=== PATIENT | male | born 1955 | race Caucasian/White ===

== ENCOUNTER 2016-10-09 08:47 | Emergency (ER) | payer MEDICARE, OTHER, SELFPAY ==
[2016-10-09] MEDS ORDERED: LOSARTAN 25 MG TAB PO STA (09:07)
--- NOTE | 2016-10-09 09:11 | ED ---
General Adult HPI - General Chief complaint: ENT Stated complaint: Hypertension Time Seen by Provider: 10/09/16 08:50 Source: patient, EMS, RN notes reviewed Mode of arrival: EMS Limitations: no limitations - History of Present Illness Initial comments: Patient is a pleasant 41-year-old male presenting to the emergency Department with epistaxis. Onset was when he woke at 8 AM. Patient did immediately take his blood pressure medication. Patient states bleeding has now stopped. Patient feels fine and has no other complaints. Patient has had a couple of nosebleeds in the past. Patient states he had difficulty getting it stopped earlier otherwise would not have come. No weakness. Patient does have a history of hypertension. No bleeding from other areas. - Related Data Home Medications Medication Instructions Recorded Confirmed Losartan Potassium [Cozaar] 50 mg PO DAILY 01/26/15 01/26/15 Allergies Allergy/AdvReac Type Severity Reaction Status Date / Time No Known Allergies Allergy Verified 01/26/15 14:34 Review of Systems ROS Statement: Those systems with pertinent positive or pertinent negative responses have been documented in the HPI. ROS Other: All systems not noted in ROS Statement are negative. Constitutional: Denies: fever Eyes: Denies: eye pain ENT: Denies: ear pain Respiratory: Denies: cough Cardiovascular: Denies: chest pain Endocrine: Denies: fatigue Gastrointestinal: Denies: abdominal pain Genitourinary: Denies: dysuria Musculoskeletal: Denies: back pain Skin: Denies: rash Neurological: Denies: headache, weakness Hematological/Lymphatic: Reports: other (Epistaxis) Past Medical History Past Medical History: Hypertension Additional Past Medical History / Comment(s): hepatitis c History of Any Multi-Drug Resistant Organisms: None Reported Past Surgical History: Appendectomy Past Psychological History: No Psychological Hx Reported Smoking Status: Former smoker Past Alcohol Use History: Occasional Past Drug Use History: None Reported General Exam Limitations: no limitations General appearance: alert, in no apparent distress Head exam: Present: atraumatic Eye exam: Present: normal appearance, PERRL ENT exam: Present: normal oropharynx, other (Left nares with trace amount of dried blood/eschar) Neck exam: Present: normal inspection Respiratory exam: Present: normal lung sounds bilaterally Cardiovascular Exam: Present: regular rate, normal rhythm GI/Abdominal exam: Present: soft. Absent: tenderness Extremities exam: Present: normal inspection Neurological exam: Present: alert, oriented X3, CN II-XII intact. Absent: motor sensory deficit Expanded Motor strength exam: RUE: 5, LUE: 5, RLE: 5, LLE: 5 Eye Response: (4) open spontaneously Motor Response: (6) obeys commands Verbal Response: (5) oriented Psychiatric exam: Present: normal affect, normal mood Skin exam: Absent: rash Course Vital Signs 10/09/16 10/09/16 08:51 09:29 Pulse Rate 73 73 Respiratory 18 15 Rate Blood Pressure 152/103 138/94 O2 Sat by Pulse 94 L 93 L Oximetry EKG Findings - EKG Comments: EKG Findings:: Normal sinus rhythm at 67. Normal intervals. Normal axis. Normal QRS. Normal ST-T. Medical Decision Making - Medical Decision Making Patient reevaluated and resting comfortably in bed. Epistaxis remains control. Blood pressure has somewhat improved. Patient updated on results and need for follow-up. - Lab Data Result diagrams: 10/09/16 09:35 10/09/16 09:35 Lab Results 10/09/16 10/09/16 10/09/16 Range/Units 09:35 09:35 09:35 WBC 4.5 (3.8-10.6) k/uL RBC 5.02 (4.30-5.90) m/uL Hgb 15.1 (13.0-17.5) gm/dL Hct 44.7 (39.0-53.0) % MCV 89.0 (80.0-100.0) fL MCH 30.1 (25.0-35.0) pg MCHC 33.8 (31.0-37.0) g/dL RDW 13.8 (11.5-15.5) % Plt Count 129 L (150-450) k/uL Neutrophils % 73 % Lymphocytes % 15 % Monocytes % 6 % Eosinophils % 2 % Basophils % 1 % Neutrophils # 3.3 (1.3-7.7) k/uL Lymphocytes # 0.7 L (1.0-4.8) k/uL Monocytes # 0.3 (0-1.0) k/uL Eosinophils # 0.1 (0-0.7) k/uL Basophils # 0.0 (0-0.2) k/uL PT 11.2 (9.0-12.0) sec INR 1.1 (<1.1) APTT 25.2 (22.0-30.0) sec Sodium 139 (137-145) mmol/L Potassium 4.1 (3.5-5.1) mmol/L Chloride 108 H (98-107) mmol/L Carbon Dioxide 22 (22-30) mmol/L Anion Gap 9 mmol/L BUN 14 (9-20) mg/dL Creatinine 0.71 (0.66-1.25) mg/dL Est GFR (MDRD) Af Amer >60 (>60 ml/min/1.73 sqM) Est GFR (MDRD) Non-Af >60 (>60 ml/min/1.73 sqM) Glucose 102 H (74-99) mg/dL Calcium 8.7 (8.4-10.2) mg/dL Total Bilirubin 1.0 (0.2-1.3) mg/dL AST 23 (17-59) U/L ALT 33 (21-72) U/L Alkaline Phosphatase 60 (38-126) U/L Total Protein 6.7 (6.3-8.2) g/dL Albumin 3.5 (3.5-5.0) g/dL Disposition Clinical Impression: Epistaxis, Hypertension Disposition: HOME SELF-CARE Condition: Stable Instructions: Nosebleed (ED) Additional Instructions: Twice daily for the next 2 days gently apply Vaseline with a Q-tip to the nasal septum. Return for bleeding, uncontrolled blood pressure, weakness, headache, confusion, worsening symptoms or other concerns. Referrals: Sha Hayes MD [Primary Care Provider] - 1-2 days
[2016-10-09 09:49] LABS: Basophils % (A) 1 %; CH 30.8; CHCM 34.8; Eosinophils # (A) 0.1 k/uL (0-0.7); Eosinophils % (A) 2 %; HCT 44.7 % (39.0-53.0); HDW 2.79; HGB 15.1 gm/dL (13.0-17.5); Luc # (Auto) 0.11; Luc % (Auto) 2; Lymphocytes # (A) 0.7 k/uL (1.0-4.8); Lymphocytes % (A) 15 %; MCH 30.1 pg (25.0-35.0); MCHC 33.8 g/dL (31.0-37.0); Mean Platelet Volume 7.3; Monocytes # (A) 0.3 k/uL (0-1.0); Monocytes % (A) 6 %; Neutrophils # (A) 3.3 k/uL (1.3-7.7); Neutrophils % (A) 73 %; RBC 5.02 m/uL (4.30-5.90); RDW 13.8 % (11.5-15.5); WBC 4.5 k/uL (3.8-10.6); WBC (Perox) 4.56
[2016-10-09 09:50] LABS: INR 1.1 (<1.1); Partial Thromboplastin Time 25.2 sec (22.0-30.0); Prothrombin Time 11.2 sec (9.0-12.0)
[2016-10-09 09:55] LABS: ALT 33 U/L (21-72); AST 23 U/L (17-59); Alkaline Phosphatase 60 U/L (38-126); Anion Gap 9 mmol/L; Blood Urea Nitrogen 14 mg/dL (9-20); Calcium 8.7 mg/dL (8.4-10.2); Carbon Dioxide 22 mmol/L (22-30); Chloride 108 mmol/L (98-107); Glucose 102 mg/dL (74-99); Non-African American GFR(MDRD) >60 (>60 ml/min/1.73 sqM); Potassium 4.1 mmol/L (3.5-5.1); Sodium 139 mmol/L (137-145); Total Protein 6.7 g/dL (6.3-8.2)
[2016-10-09 12:26] VITALS: BP 152/94; PULSE 72; RESP 16; TEMP 97
== END 2016-10-09 12:10 | disposition home or self-care (01) ==
LOC: EC 08:47
DX: R04.0 Epistaxis (principal); Z87.891 Personal history of nicotine dependence; Z79.899 Other long term (current) drug therapy
CPT/HCPCS: 36415; 80053; 85025; 85610; 85730; 93005; 99283

== ENCOUNTER 2019-06-29 10:42 | Emergency (ER) | payer MEDICARE, OTHER ==
[2019-06-29 10:58] VITALS: BP 155/109; PULSE 91; RESP 18; TEMP 97.8
[2019-06-29] MEDS ORDERED: LIDOCAINE 1% INJ 10MG/ML (20 ML MDV) SQ ONE (11:10)
[2019-06-29] MEDS ORDERED: GELATIN SPONGE,ABSORB (LARGE) 1 EACH SPONGE TOPICAL STA (11:16)
[2019-06-29] MEDS ORDERED: DIPH,PERTUS(ACELL)TETVAC-LF 0.5 ML VIAL IM ONE (11:16)
[2019-06-29] MEDS ORDERED: GELATIN SPONGE,ABSORB (SMALL) 1 EACH SPONGE TOPICAL STA (11:41)
--- NOTE | 2019-06-29 11:42 | ED ---
Wound/Laceration HPI - General Chief Complaint: Wound/Laceration Stated Complaint: Finger lac Time Seen by Provider: 06/29/19 11:10 Source: patient, RN notes reviewed Mode of arrival: ambulatory Limitations: no limitations - History of Present Illness Initial Comments: 64-year-old male presents emergency Department chief complaint of finger laceration. Patient states that he cut his left hand fifth digit with apparent scissors yesterday from 4 PM. Patient states her still been some mild bruising. Patient denies any numbness or tingling or decreased range of motion he is not sure when his last tetanus was. - Related Data Home Medications Medication Instructions Recorded Confirmed Losartan Potassium [Cozaar] 50 mg PO DAILY 01/26/15 10/09/16 Aspirin 325 - 650 mg PO QID PRN 10/09/16 10/09/16 Famotidine [Pepcid] 20 mg PO BID 10/09/16 10/09/16 amLODIPine BESYLATE [Norvasc] 5 mg PO DAILY 10/09/16 10/09/16 Allergies Allergy/AdvReac Type Severity Reaction Status Date / Time No Known Allergies Allergy Verified 06/29/19 10:58 Review of Systems ROS Statement: Those systems with pertinent positive or pertinent negative responses have been documented in the HPI. ROS Other: All systems not noted in ROS Statement are negative. Past Medical History Past Medical History: Hypertension Additional Past Medical History / Comment(s): hepatitis c History of Any Multi-Drug Resistant Organisms: None Reported Past Surgical History: Appendectomy Past Psychological History: No Psychological Hx Reported Smoking Status: Former smoker Past Alcohol Use History: Occasional Past Drug Use History: None Reported General Exam Limitations: no limitations General appearance: alert, in no apparent distress Head exam: Present: atraumatic, normocephalic, normal inspection Respiratory exam: Present: normal lung sounds bilaterally. Absent: respiratory distress, wheezes, rales, rhonchi, stridor Cardiovascular Exam: Present: regular rate, normal rhythm, normal heart sounds. Absent: systolic murmur, diastolic murmur, rubs, gallop, clicks Extremities exam: Present: other (Left hand fifth digit distal tip there is a skin avulsion noted mild active bleeding neurovascular intact full range of motion) Course Vital Signs 06/29/19 10:55 Temperature 97.8 F Pulse Rate 91 Respiratory 18 Rate Blood Pressure 155/109 O2 Sat by Pulse 95 Oximetry Medical Decision Making - Medical Decision Making Finger was thoroughly cleaned, Gelfoam applied, hemostasis achieved patient's tetanus was updated and will be discharged. Disposition Clinical Impression: Avulsion of skin of finger Disposition: HOME SELF-CARE Condition: Stable Instructions (If sedation given, give patient instructions): Skin Avulsion (ED) Additional Instructions: Please return to the Emergency Department if symptoms worsen or any other concerns. Is patient prescribed a controlled substance at d/c from ED?: No Referrals: None,Stated [Primary Care Provider] - 1-2 days Time of Disposition: 11:42
== END 2019-06-29 11:50 | disposition home or self-care (01) ==
LOC: EC 10:42
DX: S61.207A Unspecified open wound of left little finger without damage to nail, initial encounter (principal); I10 Essential (primary) hypertension; Z87.891 Personal history of nicotine dependence; Z79.899 Other long term (current) drug therapy; Z23 Encounter for immunization; W26.8XXA Contact with other sharp object(s), not elsewhere classified, initial encounter; Z53.8 Procedure and treatment not carried out for other reasons
CPT/HCPCS: 90471; 90715; 99282

== ENCOUNTER 2020-11-16 14:57 | Emergency (ER) | payer OTHER ==
[2020-11-16 15:06] VITALS: BP 150/88; PULSE 86; RESP 20; TEMP 98.1
--- NOTE | 2020-11-16 15:34 | ED ---
Extremity Problem HPI - General Chief complaint: Extremity Problem,Nontraumatic Stated complaint: Swollen finger Time Seen by Provider: 11/16/20 15:12 Source: patient, family Mode of arrival: ambulatory Limitations: no limitations - History of Present Illness Initial comments: Patient is a 65-year-old male presenting to the emergency Department with com plaints of pain and swelling at the distal end of his right middle finger. Patient states his been going on for the last 2 days. He denies any fever or chills. Denies any injuries to the finger. He states he just noticed little bit of swelling. He has been trying warm water soaks as well as topical antibiotics. He has no further complaints at this time. - Related Data Home Medications Medication Instructions Recorded Confirmed Losartan Potassium [Cozaar] 50 mg PO DAILY 01/26/15 10/09/16 Aspirin 325 - 650 mg PO QID PRN 10/09/16 10/09/16 Famotidine [Pepcid] 20 mg PO BID 10/09/16 10/09/16 amLODIPine BESYLATE [Norvasc] 5 mg PO DAILY 10/09/16 10/09/16 Previous Rx's Medication Instructions Recorded Cephalexin [Keflex] 500 mg PO BID 3 Days #6 cap 11/16/20 Allergies Allergy/AdvReac Type Severity Reaction Status Date / Time No Known Allergies Allergy Verified 11/16/20 15:06 Review of Systems ROS Statement: Those systems with pertinent positive or pertinent negative responses have been documented in the HPI. ROS Other: All systems not noted in ROS Statement are negative. Past Medical History Past Medical History: Hypertension Additional Past Medical History / Comment(s): hepatitis c History of Any Multi-Drug Resistant Organisms: None Reported Past Surgical History: Appendectomy Past Psychological History: No Psychological Hx Reported Smoking Status: Current every day smoker Past Alcohol Use History: Daily Past Drug Use History: None Reported General Exam - General Exam Comments Initial Comments: GENERAL: Patient is well-developed and well-nourished. Patient is nontoxic and in no acute distress. HEAD: Atraumatic, normocephalic. EYES: Pupils equal round and reactive to light, extraocular movements intact, sclera anicteric, conjunctiva are normal. Eyelids were unremarkable. ENT: Nares patent, oropharynx clear without exudates. Moist mucous membranes. NECK: Normal range of motion, supple without lymphadenopathy or JVD. LUNGS: Unlabored respirations. Breath sounds clear to auscultation bilaterally and equal. No wheezes rales or rhonchi. HEART: Regular rate and rhythm without murmurs, rubs or gallops. ABDOMEN: Soft, nontender, normoactive bowel sounds. No guarding, no rebound. No masses appreciated. : Deferred MUSCULOSKELETAL: Patient has full range of motion of the right fingers. Normal extremities with adequate strength and normal range of motion, no pitting or edema. No clubbing or cyanosis. NEUROLOGICAL: Patient is alert and oriented x 3. Symmetrical smile. Normal speech, normal gait. PSYCH: Normal mood, normal affect. SKIN: Warm, Dry, normal turgor, no rashes. Patient has some very mild erythema and swelling noted to the lateral aspect of the right middle finger near the nail edge. This is consistent with a very mild paronychia. No spreading erythema. Limitations: no limitations Course Vital Signs 11/16/20 15:03 Temperature 98.1 F Pulse Rate 86 Respiratory 20 Rate Blood Pressure 150/88 O2 Sat by Pulse 100 Oximetry Medical Decision Making - Medical Decision Making Patient is a 65-year-old male here with complaints of pain and swelling at distal and of his right middle finger. Patient has a very mild paronychia present. No obvious signs of spreading infection, no fevers. The area started to drain with some mild pressure here in the ER. Recommended continuing with warm water soaks, topical antibiotics. Patient was very concerned with possibility of spreading infection, I will give him a few days of an oral antibiotic. Patient is stable for discharge. Patient is in agreement with this plan of care. Return parameters were discussed with the patient and they verbalized understanding. Case discussed with Dr. Kelsey. Disposition Clinical Impression: Paronychia of right middle finger Disposition: HOME SELF-CARE Condition: Stable Instructions (If sedation given, give patient instructions): Paronychia (ED) Additional Instructions: Please return to the Emergency Department if symptoms worsen or any other concerns. Continue with warm water soaks, topical antibiotics. May take oral antibiotics as prescribed. Follow-up with your regular family doctor. Prescriptions: Cephalexin [Keflex] 500 mg PO BID 3 Days #6 cap Is patient prescribed a controlled substance at d/c from ED?: No Referrals: None,Stated [Primary Care Provider] - 1-2 days
== END 2020-11-16 15:51 | disposition home or self-care (01) ==
LOC: EC 14:57
DX: L03.011 Cellulitis of right finger (principal); I10 Essential (primary) hypertension; F17.200 Nicotine dependence, unspecified, uncomplicated; Z79.899 Other long term (current) drug therapy
CPT/HCPCS: 99283

== ENCOUNTER → 2021-02-13 | Outpatient (CLI) | payer MEDICARE, OTHER ==
[2021-02-13 16:43] LABS: Basophils # (A) 0.04 X 10*3/uL (0.00-0.10); Basophils % (A) 1.4 %; Eosinophils # (A) 0.08 X 10*3/uL (0.04-0.35); Eosinophils % (A) 2.8 %; HCT 45.6 % (39.6-50.0); HGB 15.3 g/dL (13.0-17.0); Lymphocytes # (A) 0.82 X 10*3/uL (0.90-5.00); Lymphocytes % (A) 28.9 %; MCHC 33.6 g/dL (32.0-37.0); MCV 80.6 fL (80.0-97.0); Mean Platelet Volume 8.8 fL (9.5-12.2); Monocytes # (A) 0.32 X 10*3/uL (0.20-1.00); Monocytes % (A) 11.3 %; Neutrophils # (A) 1.58 X 10*3/uL (1.80-7.70); Neutrophils % (A) 55.6 %; Platelet Count 237 X 10*3/uL (140-440); RBC 5.66 X 10*6/uL (4.40-5.60); RDW 14.8 % (11.5-14.5); WBC 2.84 X 10*3/uL (4.50-10.00)
[2021-02-13 16:54] LABS: African American GFR (CKD) 109.4 (60.0-200.0); Albumin/Globulin Ratio 1.67 (1.60-3.17); Anion Gap 4.2 mmol/L (4.00-12.00); BUN/Creat Ratio 13.75 Ratio (12.00-20.00); Calcium 8.9 mg/dL (8.7-10.3); Carbon Dioxide 27.8 mmol/L (21.6-31.8); Globulin 2.4 g/dL (1.6-3.3); Non-African American GFR(CKD) 94.4 (60.0-200.0); Potassium 4.2 mmol/L (3.5-5.5); Total Bilirubin 1.2 mg/dL (0.2-1.2); Total Protein 6.4 g/dL (6.2-8.2)
[2021-02-13 17:15] LABS: Alpha Fetoprotein, Tumor Mkr <2.5 ng/mL (0.0-7.9)
[2021-02-13 17:53] LABS: Hepatitis B Surface AB- Quant <3.5 mIU/mL; Hepatitis B Surface Antibody Non-Reactive (Non-Reactive); Hepatitis B Surface Antigen Non-Reactive (Non-Reactive)
[2021-02-13 18:33] LABS: INR 0.95 (0.90-1.11); Prothrombin Time 10.4 sec (9.9-11.9)
== END | disposition home or self-care (01) ==
LOC: LABWHC1 10:45
PROVIDERS: ATTEND Internal Medicine
DX: B18.2 Chronic viral hepatitis C (principal); R17 Unspecified jaundice
CPT/HCPCS: 36415; 80053; 82105; 85025; 85610; 86704; 86706; 87340; 87522

== ENCOUNTER 2021-02-23 18:00 | Emergency (ER) | payer MEDICARE, OTHER ==
[2021-02-23] MEDS ORDERED: BACITRACIN OINT 1 EACH PACKET TOPICAL ONE (18:21)
--- NOTE | 2021-02-23 18:27 | ED ---
Lower Extremity Injury HPI - General Chief Complaint: Extremity Injury, Lower Stated Complaint: fall, leg lac Source: patient, RN notes reviewed Mode of arrival: wheelchair Limitations: no limitations - History of Present Illness Initial Comments: 66-year-old white male, alert and oriented 4 presents to the emergency room with complaints of falling off 2 steps between the house and steps at home today about 30 minutes prior to arrival. Patient has abrasions to his left knee and reyna and hematoma to his right anterior tib-fib. Patient states he was able to ambulate. States that it hurts worse with palpation or weightbearing on the right leg. Patient denies any other injuries, no LOC, no blood thinners. Patient states he has had a history of hepatitis C and hypertension surgical history of appendectomy is a 5 cigarette a day smoker. MD Complaint: leg injury -: minutes(s) (30) Injury: Leg: Right, Left Type of Injury: other (Abrasion and hematoma) Place: home Severity scale (1-10): 6 Improves With: nothing Worsens With: palpation Context: fall (Fell down 2 steps between the house and steps) - Related Data Home Medications Medication Instructions Recorded Confirmed Losartan Potassium [Cozaar] 50 mg PO DAILY 01/26/15 10/09/16 Aspirin 325 - 650 mg PO QID PRN 10/09/16 10/09/16 Famotidine [Pepcid] 20 mg PO BID 10/09/16 10/09/16 amLODIPine BESYLATE [Norvasc] 5 mg PO DAILY 10/09/16 10/09/16 Previous Rx's Medication Instructions Recorded Cephalexin [Keflex] 500 mg PO BID 3 Days #6 cap 11/16/20 Allergies Allergy/AdvReac Type Severity Reaction Status Date / Time No Known Allergies Allergy Verified 02/23/21 18:04 Review of Systems ROS Statement: Those systems with pertinent positive or pertinent negative responses have been documented in the HPI. ROS Other: All systems not noted in ROS Statement are negative. Past Medical History Past Medical History: Hypertension Additional Past Medical History / Comment(s): hepatitis c History of Any Multi-Drug Resistant Organisms: None Reported Past Surgical History: Appendectomy Past Psychological History: No Psychological Hx Reported Smoking Status: Current every day smoker Past Alcohol Use History: Daily Past Drug Use History: None Reported General Exam Limitations: no limitations General appearance: alert, in no apparent distress Head exam: Present: atraumatic, normocephalic, normal inspection Eye exam: Present: normal appearance, PERRL, EOMI. Absent: scleral icterus, conjunctival injection, nystagmus, periorbital swelling Pupils: Present: normal accommodation ENT exam: Present: normal exam, normal oropharynx, mucous membranes moist Neck exam: Present: normal inspection, full ROM. Absent: tenderness, meningismus, lymphadenopathy, thyromegaly Respiratory exam: Present: normal lung sounds bilaterally. Absent: respiratory distress, wheezes, rales, rhonchi, stridor, chest wall tenderness, accessory muscle use, decreased breath sounds Cardiovascular Exam: Present: regular rate, normal rhythm, normal heart sounds. Absent: systolic murmur, diastolic murmur, rubs, gallop, clicks GI/Abdominal exam: Present: soft, normal bowel sounds. Absent: distended, tenderness, guarding, rebound, rigid Extremities exam: Present: normal inspection, full ROM, normal capillary refill. Absent: tenderness, pedal edema, joint swelling, calf tenderness Left Lower Leg exam: Present: normal inspection, full ROM, tenderness, abrasion (Abrasion to his left knee and distal tibia fibula ) Ankle exam: Present: normal inspection, full ROM. Absent: tenderness Foot/Toe exam: Present: normal inspection, full ROM. Absent: tenderness Neurovascular tendon exam: Present: no vascular compromise. Absent: pulse deficit, abnormal cap refill, motor deficit, sensory deficit, tendon deficit, extremity cold to touch, pallor, decreased fine/light touch, foot drop, significant pain with passive ROM of distal joint Right Knee exam: Present: normal inspection, full ROM. Absent: tenderness Lower Leg exam: Present: full ROM, tenderness (Hematoma noted to the tip fibula), ecchymosis Ankle exam: Present: normal inspection, full ROM. Absent: tenderness, swelling Foot/Toe exam: Present: normal inspection, full ROM. Absent: tenderness, swelling Neurovascular tendon exam: Present: no vascular compromise. Absent: pulse deficit, abnormal cap refill, motor deficit, sensory deficit, tendon deficit, extremity cold to touch, pallor, decreased fine/light touch, foot drop Back exam: Present: normal inspection. Absent: full ROM, tenderness, CVA tenderness (R), CVA tenderness (L), muscle spasm, paraspinal tenderness, vertebral tenderness Neurological exam: Present: alert, oriented X3, CN II-XII intact Psychiatric exam: Present: normal affect, normal mood Skin exam: Present: warm, dry, intact, normal color. Absent: rash, cyanosis, diaphoretic, erythema, petechiae, pallor, mottled Course Vital Signs 02/23/21 18:01 Temperature 97.6 F Pulse Rate 77 Respiratory 18 Rate Blood Pressure 140/81 O2 Sat by Pulse 98 Oximetry Medical Decision Making - Medical Decision Making X-ray shows no evidence of fracture, joint spaces are within normal limits.. Patient is able to ambulate. Tetanus shot is up-to-date within the past 5 years. Patient will be directed to follow up with his primary care doctor in 1 week. Case discussed with Dr. Locke. Disposition Clinical Impression: Leg pain, Abrasions of multiple sites, Hematoma and contusion Disposition: HOME SELF-CARE Condition: Good Instructions (If sedation given, give patient instructions): Fall Prevention (ED), Hematoma (ED) Additional Instructions: Ice and elevate right leg. Motrin as needed for malou. Follow-up with the primary care doctor in 1 week. Is patient prescribed a controlled substance at d/c from ED?: No Referrals: Richard Mena MD [Primary Care Provider] - 1-2 days Time of Disposition: 18:59
--- NOTE | 2021-02-23 19:10 | XR ---
Result: Clinical History: Pain status post fall. Comparison: None available. Technique: Frontal and lateral views of the right tibia and fibula. Findings: The bone mineralization is appropriate for age. There is no acute fracture or dislocation. The visualized osseous structures are in anatomic alignme nt. The joint spaces are preserved. Impression: No acute osseous abnormality.
[2021-02-23 19:56] VITALS: BP 138/65; PULSE 76; RESP 20; TEMP 98
== END 2021-02-23 19:30 | disposition home or self-care (01) ==
LOC: EC 18:00
DX: S80.12XA Contusion of left lower leg, initial encounter (principal); S80.212A Abrasion, left knee, initial encounter; I10 Essential (primary) hypertension; F17.210 Nicotine dependence, cigarettes, uncomplicated; Z79.899 Other long term (current) drug therapy; W10.9XXA Fall (on) (from) unspecified stairs and steps, initial encounter; Y92.009 Unspecified place in unspecified non-institutional (private) residence as the place of occurrence of the external cause
CPT/HCPCS: 99283

== ENCOUNTER → 2021-03-03 | Outpatient (CLI) | payer MEDICARE, OTHER | END | disposition home or self-care (01) | CPT/HCPCS: 76705 ==

== ENCOUNTER → 2021-04-13 | Outpatient (CLI) | payer MEDICARE, OTHER ==
[2021-04-13 19:12] LABS: Basophils # (A) 0.06 X 10*3/uL (0.00-0.10); Basophils % (A) 1.9 %; Eosinophils # (A) 0.09 X 10*3/uL (0.04-0.35); Eosinophils % (A) 2.8 %; HCT 49.5 % (39.6-50.0); HGB 16.1 g/dL (13.0-17.0); Lymphocytes # (A) 0.83 X 10*3/uL (0.90-5.00); Lymphocytes % (A) 26.1 %; MCH 27.1 pg (27.0-32.0); MCHC 32.5 g/dL (32.0-37.0); MCV 83.2 fL (80.0-97.0); Mean Platelet Volume 9.6 fL (9.5-12.2); Monocytes # (A) 0.33 X 10*3/uL (0.20-1.00); Monocytes % (A) 10.4 %; Neutrophils # (A) 1.85 X 10*3/uL (1.80-7.70); Neutrophils % (A) 58.2 %; Platelet Count 222 X 10*3/uL (140-440); RBC 5.95 X 10*6/uL (4.40-5.60); RDW 15.2 % (11.5-14.5); WBC 3.18 X 10*3/uL (4.50-10.00)
[2021-04-13 21:31] LABS: Albumin 4.3 g/dL (3.80-4.90); Albumin/Globulin Ratio 2.15 (1.60-3.17); Bilirubin, Conjugated 0.5 mg/dL (0.20-0.40); Bilirubin,Unconjugated 1.1 mg/dL; Total Bilirubin 1.6 mg/dL (0.2-1.2); Total Protein 6.3 g/dL (6.2-8.2)
== END | disposition home or self-care (01) ==
LOC: LABWHC1 11:18
PROVIDERS: ATTEND Physician Assistant
DX: B18.2 Chronic viral hepatitis C (principal)
CPT/HCPCS: 36415; 80076; 85025; 87522

== ENCOUNTER → 2021-10-06 | Outpatient (CLI) | payer OTHER ==
--- NOTE | 2021-10-06 11:39 | XR ---
Lumbar spine HISTORY: Chronic low back pain 3 views of the lumbar spine There is a slight spinal curvature convex left centered at L2. Lumbar vertebral bodies show preserved height and bone mineralization. Is multilevel spondylosis. Sclerosis in the posterior elements is co nsistent with facet arthropathy. Disc height is reduced at L4-5, L5-S1. Superior endplate of L1 shows a mildly irregular appearance, possibly T12 also shows some loss of height. Sclerosis present at the sacroiliac joint on the right with hypertrophic change. Atherosclerotic vascular calcifications are present within the aorta iliac distribution. Question nephrolithiasis on the left and possibly right. IMPRESSION: Degenerative disc disease, facet arthropathy. Spinal curvature. Question some mild superi or endplate depression at T12 greater than L1, endplate compression deformity. Possible nephrolithias is, additional findings above.
== END | disposition home or self-care (01) ==
LOC: RADXRMAIN 09:26
PROVIDERS: ATTEND Internal Medicine Geriatric Medicine
DX: M47.896 Other spondylosis, lumbar region (principal); M48.00 Spinal stenosis, site unspecified; M51.36 Other intervertebral disc degeneration, lumbar region
CPT/HCPCS: 72100

== ENCOUNTER → 2021-10-06 | Outpatient (CLI) | payer OTHER ==
[2021-10-06 15:35] LABS: Alpha Fetoprotein, Tumor Mkr <1.82 ng/mL (0.00-7.90)
[2021-10-06 15:45] LABS: INR 0.97 (0.90-1.11)
[2021-10-06 15:56] LABS: ALT 6 U/L (10-49); AST 18 U/L (14-35); African American GFR (CKD) 96.2 (60.0-200.0); Albumin 3.5 g/dL (3.8-4.9); Albumin/Globulin Ratio 1.63 (1.60-3.17); Alkaline Phosphatase 83 U/L (41-126); BUN/Creat Ratio 7.99 Ratio (12.00-20.00); Bilirubin, Conjugated <0.20 mg/dL (0.20-0.40); Blood Urea Nitrogen 7.7 mg/dL (9.0-27.0); Carbon Dioxide 22.3 mmol/L (20.0-27.5); Chloride 100 mmol/L (96-109); Globulin 2.1 g/dL (1.6-3.3); Glucose 89 mg/dL (70-110); Potassium 4.7 mmol/L (3.5-5.5); Sodium 133 mmol/L (135-145); Total Protein 5.6 g/dL (6.2-8.2)
[2021-10-06 17:33] LABS: Basophils # (A) 0.02 X 10*3/uL (0.00-0.10); Basophils % (A) 0.9 %; Eosinophils # (A) 0.03 X 10*3/uL (0.04-0.35); Eosinophils % (A) 1.4 %; HGB 14.2 g/dL (13.0-17.0); Immature Grans, Automated 0.9 %; Lymphocytes # (A) 0.69 X 10*3/uL (0.90-5.00); Lymphocytes % (A) 32.4 %; MCH 27.1 pg (27.0-32.0); MCV 82.1 fL (80.0-97.0); Mean Platelet Volume 11.9 fL (9.5-12.2); Monocytes # (A) 0.13 X 10*3/uL (0.20-1.00); Monocytes % (A) 6.1 %; NRBC Per 100 WBC 0 /100 WBCS (0.0-0.0); Neutrophils # (A) 1.24 X 10*3/uL (1.80-7.70); Neutrophils % (A) 58.3 %; Platelet Count 100 X 10*3/uL (140-440); RBC 5.24 X 10*6/uL (4.40-5.60); WBC 2.13 X 10*3/uL (4.50-10.00)
== END | disposition home or self-care (01) ==
LOC: LABWHC1 08:36
PROVIDERS: ATTEND Internal Medicine Gastroenterology
DX: K74.60 Unspecified cirrhosis of liver (principal); B18.2 Chronic viral hepatitis C
CPT/HCPCS: 36415; 80053; 82105; 82248; 85025; 85610; 87522

== ENCOUNTER 2021-11-21 16:57 | Observation (INO) | payer MEDICARE, OTHER ==
--- NOTE | 2021-11-21 18:02 | XR ---
EXAMINATION TYPE: XR foot complete LT DATE OF EXAM: 11/21/2021 COMPARISON: NONE HISTORY: Foot pain TECHNIQUE: 3 views FINDINGS: Metatarsals are intact. Toes are intact. I see no fracture nor dislocation. There is soft t issue swelling of the forefoot. IMPRESSION: Soft tissue swelling. No fracture seen. Calcaneal spurring noted.
--- NOTE | 2021-11-21 19:11 | ED ---
General Adult HPI - General Chief complaint: Extremity Injury, Lower Stated complaint: Left Foot Swelling Time Seen by Provider: 11/21/21 18:15 Source: patient, RN notes reviewed Mode of arrival: wheelchair Limitations: no limitations - History of Present Illness Initial comments: 66-year-old male presents to the emergency department accompanied by a family member for evaluation of left lower extremity edema. Patient's family states this leg has been swollen for at least a month. Patient reports a fall several weeks ago, however states the swelling preceded the injury. Also complains of spotty purplish discoloration to bilateral lower extremities; states this has been a longstanding issue but is another source of concern. Family is requesting a venous doppler study of the left lower extremity. Patient is not worried about a blood clot, but is concerned about cellulitis. Denies lower extremity pain, but son states the patient walks as if his leg is bothering him. Denies fever, chills, headache, chest pain, shortness of breath, difficulty breathing, abdominal pain, nausea, vomiting, diarrhea, or dysuria. - Related Data Home Medications Medication Instructions Recorded Confirmed Baclofen 10 mg PO DAILY 11/21/21 11/21/21 lisinopriL 40 mg PO DAILY 11/21/21 11/21/21 Allergies Allergy/AdvReac Type Severity Reaction Status Date / Time No Known Allergies Allergy Verified 11/21/21 22:03 Review of Systems ROS Statement: Those systems with pertinent positive or pertinent negative responses have been documented in the HPI. ROS Other: All systems not noted in ROS Statement are negative. Past Medical History Past Medical History: Hypertension Additional Past Medical History / Comment(s): hepatitis c History of Any Multi-Drug Resistant Organisms: None Reported Past Surgical History: Appendectomy Past Psychological History: No Psychological Hx Reported Smoking Status: Current every day smoker Past Alcohol Use History: Daily Past Drug Use History: None Reported - Past Family History Father Family Medical History: Cancer, Hypertension, Myocardial Infarction ([place]) General Exam Limitations: no limitations General appearance: alert, in no apparent distress, other (Well-developed, well- nourished male in no acute distress. Initial temperature 97.7, pulse 68, respirations 18, blood pressure 159/109, pulse ox 100% on room air.) Respiratory exam: Present: normal lung sounds bilaterally. Absent: respiratory distress, wheezes, rales, rhonchi, stridor Cardiovascular Exam: Present: regular rate, normal rhythm, normal heart sounds. Absent: systolic murmur, diastolic murmur, rubs, gallop, clicks GI/Abdominal exam: Present: soft, normal bowel sounds. Absent: distended, tenderness, guarding, rebound, rigid Right Upper Leg exam: Present: normal inspection, full ROM. Absent: tenderness, swelling Knee exam: Present: normal inspection, full ROM. Absent: tenderness, swelling Lower Leg exam: Present: full ROM. Absent: normal inspection (scattered purpura BLE), tenderness, swelling, erythema, Homans' sign Ankle exam: Present: full ROM, swelling (mild swelling, medial >lateral). Absent: normal inspection, tenderness Foot/Toe exam: Present: normal inspection, full ROM. Absent: tenderness, swelling Neurovascular tendon exam: Present: no vascular compromise. Absent: pulse deficit, abnormal cap refill, motor deficit, sensory deficit, tendon deficit, extremity cold to touch Left Upper Leg exam: Present: normal inspection, full ROM. Absent: tenderness, swelling Knee exam: Present: normal inspection, full ROM. Absent: tenderness, swelling Lower Leg exam: Present: full ROM, swelling (swelling extends from knee to foot; +1 pitting edema). Absent: normal inspection (scattered purpura BLE), tenderness, erythema, Homans' sign Ankle exam: Present: full ROM, swelling. Absent: normal inspection, tenderness Foot/Toe exam: Present: full ROM, swelling. Absent: tenderness Neurovascular tendon exam: Present: no vascular compromise. Absent: pulse deficit, abnormal cap refill, motor deficit, sensory deficit, tendon deficit, extremity cold to touch Neurological exam: Present: alert, oriented X3 Psychiatric exam: Present: normal affect, normal mood Skin exam: Present: warm, dry, intact Course Vital Signs 11/21/21 11/21/21 11/21/21 17:09 20:51 23:20 Temperature 97.7 F 97.6 F 98.1 F Pulse Rate 68 62 60 Respiratory 18 16 18 Rate Blood Pressure 159/109 140/87 138/86 O2 Sat by Pulse 100 98 99 Oximetry Medical Decision Making - Medical Decision Making 66-year-old male with a past medical history of hepatitis C for which he received treatment presents to the emergency department for evaluation of left lower extremity edema. Upon exam, patient is well-appearing and in no acute distress. He is not experiencing any chest pain or shortness of breath. His le ft lower extremity is more swollen than the right with trace pitting edema. Patient is noted to have scattered purpura on bilateral lower extremities. Venous Doppler study is negative for DVT. Left foot x-ray is unremarkable. Laboratory studies show worsening leukopenia and thrombocytopenia. Findings discussed with patient. He is agreeable to hospital admission for further evaluation and treatment. This patient's care was discussed with my attending, Dr. Zepeda. I spoke with Dr. Pineda who agrees to accept this patient for admission. - Lab Data Result diagrams: 11/21/21 19:06 11/21/21 19:06 Lab Results 11/21/21 11/21/21 11/21/21 Range/Units 19:06 19:06 19:06 WBC 1.6 L (3.8-10.6) k/uL RBC 4.70 (4.30-5.90) m/uL Hgb 12.8 L (13.0-17.5) gm/dL Hct 38.4 L (39.0-53.0) % MCV 81.8 (80.0-100.0) fL MCH 27.2 (25.0-35.0) pg MCHC 33.3 (31.0-37.0) g/dL RDW 14.4 (11.5-15.5) % Plt Count 46 L (150-450) k/uL MPV 9.2 Neutrophils % (Manual) 51 % Band Neuts % (Manual) 2 % Lymphocytes % (Manual) 42 % Monocytes % (Manual) 3 % Eosinophils % (Manual) 1 % Basophils % (Manual) 1 % Neutrophils # (Manual) 0.80 L (1.3-7.7) k/uL Lymphocytes # (Manual) 0.67 L (1.0-4.8) k/uL Monocytes # (Manual) 0.05 (0-1.0) k/uL Eosinophils # (Manual) 0.02 (0-0.7) k/uL Basophils # (Manual) 0.02 (0-0.2) k/uL Nucleated RBCs 0 (0-0) /100 WBC Manual Slide Review Performed PT 10.9 (9.0-12.0) sec INR 1.0 (<1.2) APTT 25.7 (22.0-30.0) sec Sodium 130 L (137-145) mmol/L Potassium 4.4 (3.5-5.1) mmol/L Chloride 103 (98-107) mmol/L Carbon Dioxide 21 L (22-30) mmol/L Anion Gap 6 mmol/L BUN 12 (9-20) mg/dL Creatinine 0.93 (0.66-1.25) mg/dL Est GFR (CKD-EPI)AfAm >90 (>60 ml/min/1.73 sqM) Est GFR (CKD-EPI)NonAf 87 (>60 ml/min/1.73 sqM) Glucose 92 (74-99) mg/dL Calcium 7.9 L (8.4-10.2) mg/dL Total Bilirubin 1.1 (0.2-1.3) mg/dL AST 21 (17-59) U/L ALT 7 (4-49) U/L Alkaline Phosphatase 69 (38-126) U/L Total Protein 5.8 L (6.3-8.2) g/dL Albumin 3.0 L (3.5-5.0) g/dL - Radiology Data Radiology results: report reviewed, image reviewed Venous Doppler of the left lower extremity was obtained. Report was reviewed in its entirety. Impression per Dr. Portillo is no evidence of deep vein thrombosis in the left leg. X-ray of the left foot was obtained. Report was reviewed in its entirety. Impression per Dr. Portillo is soft tissue swelling. No fracture seen. Calcaneal spurring noted. Disposition Clinical Impression: Thrombocytopenia, Lower extremity edema, Purpura Disposition: ADMITTED IP TO THIS [facility] Condition: Serious Decision Date: 11/21/21 Decision Time: 22:51
[2021-11-21 19:33] LABS: ALT 7 U/L (4-49); AST 21 U/L (17-59); African American GFR (CKD) >90 (>60 ml/min/1.73 sqM); Alkaline Phosphatase 69 U/L (38-126); Anion Gap 6 mmol/L; Blood Urea Nitrogen 12 mg/dL (9-20); Calcium 7.9 mg/dL (8.4-10.2); Carbon Dioxide 21 mmol/L (22-30); Chloride 103 mmol/L (98-107); Glucose 92 mg/dL (74-99); Non-African American GFR(CKD) 87 (>60 ml/min/1.73 sqM); Potassium 4.4 mmol/L (3.5-5.1); Sodium 130 mmol/L (137-145); Total Bilirubin 1.1 mg/dL (0.2-1.3); Total Protein 5.8 g/dL (6.3-8.2)
[2021-11-21 19:41] LABS: HCT 38.4 % (39.0-53.0); HGB 12.8 gm/dL (13.0-17.5); MCH 27.2 pg (25.0-35.0); MCHC 33.3 g/dL (31.0-37.0); MCV 81.8 fL (80.0-100.0); Mean Platelet Volume 9.2; RDW 14.4 % (11.5-15.5); WBC 1.6 k/uL (3.8-10.6)
--- NOTE | 2021-11-21 20:05 | US ---
EXAMINATION TYPE: US venous doppler duplex LE LT DATE OF EXAM: 11/21/2021 7:34 PM COMPARISON: NONE CLINICAL HISTORY: Left lower extremity edema. Left leg swelling, no known prior DVT SIDE PERFORMED: Left TECHNIQUE: The lower extremity deep venous system is examined utilizing real time linear array sonog junior with graded compression, doppler sonography and color-flow sonography. VESSELS IMAGED: Common Femoral Vein Deep Femoral Vein Greater Saphenous Vein * Femoral Vein Popliteal Vein Small Saphenous Vein * Proximal Calf Veins (* superficial vessels) Left Leg: Negative for DVT IMPRESSION: No evidence of deep vein thrombosis in the left leg.
[2021-11-21 20:32] LABS: Nucleated Red Blood Cells 0 /100 WBC (0-0)
[2021-11-21 20:40] LABS: Band Neutrophils % 2 %; Basophils # (M) 0.02 k/uL (0-0.2); Eosinophils # (M) 0.02 k/uL (0-0.7); Lymphocytes # (M) 0.67 k/uL (1.0-4.8); Monocytes # (M) 0.05 k/uL (0-1.0); Neutrophils % (M) 51 %; Total Cells Counted 100
[2021-11-21 20:41] LABS: Platelet Count 46 k/uL (150-450)
[2021-11-21 21:09] LABS: Partial Thromboplastin Time 25.7 sec (22.0-30.0); Prothrombin Time 10.9 sec (9.0-12.0)
[2021-11-21] MEDS ORDERED: ACETAMINOPHEN TAB 325 MG TAB PO PRN (22:46)
[2021-11-21] MEDS ORDERED: HYDROcodone/APAP 5-325MG 1 EACH TAB PO PRN (22:46)
[2021-11-21] MEDS ORDERED: NALOXONE 0.4 MG/ML 1 ML VIAL IV PRN (22:46)
[2021-11-21] MEDS ORDERED: ONDANSETRON 4 MG/2 ML VIAL IVP PRN (22:46)
--- NOTE | 2021-11-22 01:28 | P.HPIM ---
History of Present Illness H&P Date: 11/21/21 Patient is a 66-year-old male with a PMH of hepatitis C, recently completed a course of curative intent therapy, hypertension, and tobacco abuse who presents the emergency room with complaints of lower extremity bruising and left lower extremity edema. Patient reports that his symptoms have been ongoing for the past 1 month, for which he has been attempting to see his PCP but has been unable to make an appointment. He reports that the bruising and no swelling have gradually worsened. He denied any additional complaints. He denied experiencing leg pain. Denied any history of blood clots. He denied experiencing fever, chills, weight loss, chest pain, shortness of breath, nausea, vomiting, abdominal pain, diarrhea. Left lower extremity venous Doppler in the emergency room was negative. Left-sided foot x-ray revealed soft tissue swelling. Laboratory evaluation was remarkable for pancytopenia with a WBC count 1.6, hemoglobin 12.8, and platelet count 46. Review of systems: Pertinent positives and negatives as discussed in HPI, a complete review of systems was performed and all other systems are negative. Physical examination: General: non toxic, no distress, appears at stated age, normal weight Derm: Petechiae with purpura of LLE greater than RLE noted, warm, dry Head: atraumatic, normocephalic, symmetric Eyes: EOMI, no lid lag, anicteric sclera, pupils equal round reactive to light ENT: Nose and ears atraumatic, no thrush, no pharyngeal erythema Neck: No thyromegaly, no cervical lymphadenopathy, trachea midline, supple Mouth: no lip lesion, mucus membranes moist Cardiovascular: S1S2 reg, no murmur, positive posterior tibial pulse bilateral, 1+ LLE edema noted, capillary refill less than 2 seconds Lungs: CTA bilateral, no rhonchi, no rales , no accessory muscle use Abdominal: soft, nontender to palpation, no guarding, no appreciable organomegaly, normal bowel sounds Ext: no gross muscle atrophy, muscle strength 5 out of 5 in all 4 extremities grossly, no contractures, Neuro: CN II-XI grossly intact, light touch intact all 4 extremities, finger to nose within normal limits, Psych: Alert, oriented, appropriate affect Assessment/plan Pancytopenia with purpura in patient with Hepatitis C -Hematology consult -Patient may need Bone marrow biopsy -Obtain ESR, CRP, C3, C4, ANCA, DVT prophylaxis -Hold off on IPCDs in setting of significant LE purpura The patient is admitted with an anticipated less than 2 midnight stay for evaluation of pancytopenia CODE STATUS: Full Code Discussed with: Patient Anticipated discharge date: in am Anticipated discharge place: Home Past Medical History Past Medical History: Hypertension Additional Past Medical History / Comment(s): hepatitis c History of Any Multi-Drug Resistant Organisms: None Reported Past Surgical History: Appendectomy Past Anesthesia/Blood Transfusion Reactions: No Reported Reaction Past Psychological History: No Psychological Hx Reported Smoking Status: Current every day smoker Past Alcohol Use History: Daily Past Drug Use History: None Reported - Past Family History Father Family Medical History: Cancer, Hypertension, Myocardial Infarction ([place]) Medications and Allergies Home Medications Medication Instructions Recorded Confirmed Type Baclofen 10 mg PO DAILY 11/21/21 11/21/21 History lisinopriL 40 mg PO DAILY 11/21/21 11/21/21 History Allergies Allergy/AdvReac Type Severity Reaction Status Date / Time No Known Allergies Allergy Verified 11/21/21 22:03 Physical Exam Vitals: Vital Signs Temp Pulse Resp BP Pulse Ox 11/21/21 23:20 98.1 F 60 18 138/86 99 11/21/21 20:51 97.6 F 62 16 140/87 98 11/21/21 17:09 97.7 F 68 18 159/109 100 Intake and Output 11/21/21 11/21/21 11/22/21 14:59 22:59 06:59 Other: Weight 69.853 kg 69.853 kg Results CBC & Chem 7: 11/21/21 19:06 11/21/21 19:06 Labs: Abnormal Lab Results - Last 24 Hours (Table) 11/21/21 11/21/21 Range/Units 19:06 19:06 WBC 1.6 L (3.8-10.6) k/uL Hgb 12.8 L (13.0-17.5) gm/dL Hct 38.4 L (39.0-53.0) % Plt Count 46 L (150-450) k/uL Neutrophils # (Manual) 0.80 L (1.3-7.7) k/uL Lymphocytes # (Manual) 0.67 L (1.0-4.8) k/uL Sodium 130 L (137-145) mmol/L Carbon Dioxide 21 L (22-30) mmol/L Calcium 7.9 L (8.4-10.2) mg/dL Total Protein 5.8 L (6.3-8.2) g/dL Albumin 3.0 L (3.5-5.0) g/dL Thrombosis Risk Factor Assmnt - Choose All That Apply Any of the Below Risk Factors Present?: Yes Each Factor Represents 1 point: Swollen legs (current) Other Risk Factors: Yes Each Risk Factor Represents 2 Points: Age 61-74 years Other congenital or acquired thrombophilia - If yes, enter type in comment: No Thrombosis Risk Factor Assessment Total Risk Factor Score: 3 Thrombosis Risk Factor Assessment Level: Moderate Risk
[2021-11-22 07:04] LABS: Calcium 7.9 mg/dL (8.4-10.2); Potassium 4.9 mmol/L (3.5-5.1)
[2021-11-22 07:09] LABS: HCT 35.2 % (39.0-53.0); HGB 11.6 gm/dL (13.0-17.5); MCH 27.2 pg (25.0-35.0); MCV 82.4 fL (80.0-100.0); Mean Platelet Volume 7.6; RBC 4.27 m/uL (4.30-5.90); RDW 14.4 % (11.5-15.5)
[2021-11-22 07:31] LABS: Platelet Count 44 k/uL (150-450); WBC 1.4 k/uL (3.8-10.6)
[2021-11-22 09:13] LABS: C Reactive Protein 1.3 mg/dL (<1.0)
--- NOTE | 2021-11-22 09:36 | P.CONS ---
History of Present Illness - Reason for Consult Consult date: 11/22/21 History of hepatitis C Requesting physician: Richard Mena - Chief Complaint Lower extremity swelling - History of Present Illness This is 66-year-old male who presented to the emergency department yesterday evening for complaints of lower extremity swelling. Apparently patient's left lower extremity has been swollen and discolored for the last 1 month's duration. Patient had reported a fall several weeks ago. He states he's been having spotty purplish discoloration to bilateral lower extremities. Patient was noted on admission to be pancytopenic with purpura. Patient does have a history of hepatitis C, treated. Patient is unsure of treatment but states he was diagnosed approximately 1 year ago. Gastroenterology was consulted for patient with history of hepatitis C in the setting of pancytopenia with left lower extremity purpura. Patient also does have a history of every day smoker and alcohol use. He states he has an appointment upcoming at the end of next month with gastroenterology for follow-up on hepatitis C. He is concerned with his counts after treatment, and if his hepatitis C is resolved. Admitting labs WBC 1.6 hemoglobin 12.8 hematocrit 38 platelet count 46,000 INR 1.0 total bilirubin 1.1 AST 21 and T7 alkaline phosphatase 69. Looks like he had outpatient labs on 10/06/2021 hepatitis C viral RNA not detected. He currently denies any abdominal pain, abdominal bloating, nausea or vomiting. Review of Systems REVIEW OF SYSTEMS: CARDIOPULMONARY: No chest pain or shortness of breath. Gastrointestinal: No abdominal pain. No nausea or vomiting. No hematemesis, coffee-ground emesis. No rectal bleeding, or melena. GENITOURINARY: No dysuria or hematuria. MUSCULOSKELETAL: Reports normal range of motion. No joint pain. SKIN: No rashes. No jaundice. Left lower extremity swelling with Purpura. ENDOCRINE: No chills, fevers. No excessive weight gain or loss. No polydipsia or polyuria. PSYCHIATRIC: Unremarkable. NEUROLOGY: No change in mental status. Denies dizziness, headache. ENT: Vision unremarkable. CONSTITUTIONAL: No recent weight loss. No fever, chills, night sweats. Past Medical History Past Medical History: Hypertension Additional Past Medical History / Comment(s): hepatitis c History of Any Multi-Drug Resistant Organisms: None Reported Past Surgical History: Appendectomy Past Anesthesia/Blood Transfusion Reactions: No Reported Reaction Past Psychological History: No Psychological Hx Reported Smoking Status: Current every day smoker Past Alcohol Use History: Daily Past Drug Use History: None Reported - Past Family History Father Family Medical History: Cancer, Hypertension, Myocardial Infarction ([place]) Medications and Allergies Home Medications Medication Instructions Recorded Confirmed Type Baclofen 10 mg PO DAILY 11/21/21 11/21/21 History lisinopriL 40 mg PO DAILY 11/21/21 11/21/21 History Allergies Allergy/AdvReac Type Severity Reaction Status Date / Time No Known Allergies Allergy Verified 11/21/21 22:03 Physical Exam Vitals: Vital Signs Temp Pulse Pulse Resp BP BP Pulse Ox 11/22/21 07:00 98.7 F 60 18 137/85 97 11/22/21 00:29 97.8 F 62 20 151/95 98 11/21/21 23:20 98.1 F 60 18 138/86 99 11/21/21 20:51 97.6 F 62 16 140/87 98 11/21/21 17:09 97.7 F 68 18 159/109 100 Intake and Output 11/21/21 11/22/21 11/22/21 22:59 06:59 14:59 Other: # Voids 1 Weight 69.853 kg 69.853 kg General appearance: The patient is alert, oriented, appears in no acute distress. HET: Head is normocephalic and atraumatic. Conjunctiva pink. Sclera anicteric. Neck: Supple without lymphadenopathy. Trachea midline. Heart: S1 S2. Regular rate and rhythm. Lungs: Clear to auscultation. Abdomen: Soft, nontender, nondistended with bowel sounds. No guarding or rigidity. Skin: No rashes. No jaundice. Extremities: Normal skin color and turgor. Bilateral lower extremity edema, greater on left. Left lower extremity with purpura. Neurological: No focal deficits. Alert and oriented x3. Results CBC & Chem 7: 11/22/21 05:59 11/22/21 05:59 Labs: Abnormal Lab Results - Last 24 Hours (Table) 11/21/21 11/21/21 11/22/21 Range/Units 19:06 19:06 05:59 WBC 1.6 L 1.4 L* (3.8-10.6) k/uL RBC 4.27 L (4.30-5.90) m/uL Hgb 12.8 L 11.6 L (13.0-17.5) gm/dL Hct 38.4 L 35.2 L (39.0-53.0) % Plt Count 46 L 44 L (150-450) k/uL Neutrophils # (Manual) 0.80 L (1.3-7.7) k/uL Lymphocytes # (Manual) 0.67 L (1.0-4.8) k/uL ESR (0-15) mm/hr Sodium 130 L (137-145) mmol/L Carbon Dioxide 21 L (22-30) mmol/L Calcium 7.9 L (8.4-10.2) mg/dL C-Reactive Protein (<1.0) mg/dL Total Protein 5.8 L (6.3-8.2) g/dL Albumin 3.0 L (3.5-5.0) g/dL 11/22/21 11/22/21 Range/Units 05:59 08:49 WBC (3.8-10.6) k/uL RBC (4.30-5.90) m/uL Hgb (13.0-17.5) gm/dL Hct (39.0-53.0) % Plt Count (150-450) k/uL Neutrophils # (Manual) (1.3-7.7) k/uL Lymphocytes # (Manual) (1.0-4.8) k/uL ESR 20 H (0-15) mm/hr Sodium 131 L (137-145) mmol/L Carbon Dioxide (22-30) mmol/L Calcium 7.9 L (8.4-10.2) mg/dL C-Reactive Protein 1.3 H (<1.0) mg/dL Total Protein (6.3-8.2) g/dL Albumin (3.5-5.0) g/dL Comments: Venous duplex left lower extremity negative for DVT X-ray left foot report soft tissue swelling. No fracture seen. Calcaneal spurring noted. Assessment and Plan (1) History of hepatitis C Narrative/Plan: A 66-year-old male who states he was diagnosed and treated for hepatitis C approximately one year ago presented to the emergency department yesterday evening with complaints of lower extremity swelling with discoloration to the left lower extremity. He was noted to have pancytopenia on admission. Patient states he has been treated about one year ago for his hepatitis C and follows with Dr. Turner's office. He is unsure of his treatment however likely [facility]ann[facility]. Gastroenterology was consulted as patient had questions if his treatment was successful. It does look like he had some outpatient blood work done September 2021 that showed a negative hepatitis C RNA. He is denying any abdominal pain, nausea, vomiting, or abdominal distention. States he's had lower extremity swelling for at least last 1 month's duration with some discoloration to the left lower extremity. He denies any previous history of thrombocytopenia, den ies any outpatient follow-up with hematology. He denies any signs or symptoms of bleeding. No GI blood loss reported. Today's labs WBC 1.4 hemoglobin 11.6 hematocrit 35, platelet count 44,000 ESR 20 CRP pending, total bilirubin 1.1 AST 21 and T7 alk phos 69. He had previous AFP tumor marker which was negative less than 1.82 Current Visit: Yes Status: Acute Code(s): Z86.19 - PERSONAL HISTORY OF OTHER INFECTIOUS AND PARASITIC DISEASES SNOMED Code(s): 42577942197327 (2) Purpura Current Visit: Yes Status: Acute Code(s): D69.2 - OTHER NONTHROMBOCYTOPENIC PURPURA SNOMED Code(s): 427921233 (3) Pancytopenia Current Visit: Yes Status: Acute Code(s): D61.818 - OTHER PANCYTOPENIA SNOMED Code(s): 366168841 Plan: 1. Continue symptomatic and supportive care 2. Continue with recommendations and input from hematology 3. Most recent hepatitis C RNA nonreactive 4. Continue outpatient follow-up as scheduled with gastroenterology Thank you for this consultation, we will continue to follow. Dr. Freya Mcelroy I agree with the dictator's note, documented as a scribe by Aarti Quintanilla.
[2021-11-22] MEDS: FAMOTIDINE 20 MG TAB PO SCH ×2 (09:43→19:20)
[2021-11-22 10:07] LABS: Eosinophils # (M) 0.03 k/uL (0-0.7); Monocytes # (M) 0.08 k/uL (0-1.0); Neutrophils # (M) 0.59 k/uL (1.3-7.7); Neutrophils % (M) 42 %; Nucleated Red Blood Cells 0 /100 WBC (0-0); Total Cells Counted 100
[2021-11-22 10:08] LABS: RBC Morphology Normal
[2021-11-22 12:54] LABS: Partial Thromboplastin Time 26.4 sec (22.0-30.0); Prothrombin Time 10.7 sec (9.0-12.0)
--- NOTE | 2021-11-22 14:59 | P.CONS ---
History of Present Illness - Reason for Consult Consult date: 11/22/21 Bicytopenia Requesting physician: Aarti Tarango - Chief Complaint BLE Rash - Purpura - History of Present Illness is a pleasant 66 year old male patient recently treated with Harvoni for Hepatitis C, Discussed with GI who confirmed response to treatment, believes this completed in February 2021. However he still has liver cirrhosis which could be contributing to current concerns. He presents to hospital with ble purpura, lower platelet count 44K, and neutropenia. No active infection found at this time, however blood cultures and urinalysis in progress. LLE Doppler negative for DVT. Review of Systems All systems: negative Constitutional: Reports as per HPI Past Medical History Past Medical History: Hypertension Additional Past Medical History / Comment(s): hepatitis c History of Any Multi-Drug Resistant Organisms: None Reported Past Surgical History: Appendectomy Past Anesthesia/Blood Transfusion Reactions: No Reported Reaction Past Psychological History: No Psychological Hx Reported Smoking Status: Current every day smoker Past Alcohol Use History: Daily Past Drug Use History: None Reported - Past Family History Father Family Medical History: Cancer, Hypertension, Myocardial Infarction ([place]) Medications and Allergies Home Medications Medication Instructions Recorded Confirmed Type Baclofen 10 mg PO DAILY 11/21/21 11/21/21 History lisinopriL 40 mg PO DAILY 11/21/21 11/21/21 History Allergies Allergy/AdvReac Type Severity Reaction Status Date / Time No Known Allergies Allergy Verified 11/21/21 22:03 Physical Exam Vitals: Vital Signs Temp Pulse Pulse Resp BP BP Pulse Ox 11/22/21 08:00 60 18 11/22/21 07:00 98.7 F 60 18 137/85 97 11/22/21 00:29 97.8 F 62 20 151/95 98 11/21/21 23:20 98.1 F 60 18 138/86 99 11/21/21 20:51 97.6 F 62 16 140/87 98 11/21/21 17:09 97.7 F 68 18 159/109 100 Intake and Output 11/21/21 11/22/21 11/22/21 22:59 06:59 14:59 Other: # Voids 1 Weight 69.853 kg 69.853 kg Alerta and Oriented NAD EOMI Lungs: CTA Abdomen Soft, Tender Extremities BLE purplish Purpura LLE >Right Lower Results CBC & Chem 7: 03/28/22 05:59 11/22/21 05:59 Labs: Abnormal Lab Results - Last 24 Hours (Table) 11/21/21 11/21/21 11/22/21 Range/Units 19:06 19:06 05:59 WBC 1.6 L 1.4 L* (3.8-10.6) k/uL RBC 4.27 L (4.30-5.90) m/uL Hgb 12.8 L 11.6 L (13.0-17.5) gm/dL Hct 38.4 L 35.2 L (39.0-53.0) % Plt Count 46 L 44 L (150-450) k/uL Neutrophils # (Manual) 0.80 L 0.59 L (1.3-7.7) k/uL Lymphocytes # (Manual) 0.67 L 0.70 L (1.0-4.8) k/uL ESR (0-15) mm/hr Sodium 130 L (137-145) mmol/L Carbon Dioxide 21 L (22-30) mmol/L Calcium 7.9 L (8.4-10.2) mg/dL C-Reactive Protein (<1.0) mg/dL Total Protein 5.8 L (6.3-8.2) g/dL Albumin 3.0 L (3.5-5.0) g/dL 11/22/21 11/22/21 Range/Units 05:59 08:49 WBC (3.8-10.6) k/uL RBC (4.30-5.90) m/uL Hgb (13.0-17.5) gm/dL Hct (39.0-53.0) % Plt Count (150-450) k/uL Neutrophils # (Manual) (1.3-7.7) k/uL Lymphocytes # (Manual) (1.0-4.8) k/uL ESR 20 H (0-15) mm/hr Sodium 131 L (137-145) mmol/L Carbon Dioxide (22-30) mmol/L Calcium 7.9 L (8.4-10.2) mg/dL C-Reactive Protein 1.3 H (<1.0) mg/dL Total Protein (6.3-8.2) g/dL Albumin (3.5-5.0) g/dL Assessment and Plan (1) History of hepatitis C Narrative/Plan: - Treated with Harvoni in February 2021 - Continues with Chronic liver disease per GI - Hepatitis is cleared - Discussed with GI Current Visit: Yes Status: Acute Code(s): Z86.19 - PERSONAL HISTORY OF OTHER INFECTIOUS AND PARASITIC DISEASES SNOMED Code(s): 57117060210976 (2) Lower extremity edema Narrative/Plan: LLE Edema and bile Purpura No obvious cause for LLE edema, pain in lower abdomen Current Visit: Yes Status: Acute Code(s): R60.0 - LOCALIZED EDEMA SNOMED Code(s): 654190680 (3) Purpura Narrative/Plan: DIC work-up Anca Labs ordered Current Visit: Yes Status: Acute Code(s): D69.2 - OTHER NONTHROMBOCYTOPENIC PURPURA SNOMED Code(s): 589205679 (4) Thrombocytopenia Narrative/Plan: Likely from Liver disease cirrhosis, 0 No NSAIDS or ASA at this time, discussed with patient Current Visit: Yes Status: Acute Code(s): D69.6 - THROMBOCYTOPENIA, UNSPECIFIED SNOMED Code(s): 932989160 (5) Neutropenia Narrative/Plan: Possibly related to underlying liver disease, however with extreme decrease other etiologies need to be considered - Infectious and malignancy work-up - If infection found can support with growth factor Current Visit: Yes Status: Acute Code(s): D70.9 - NEUTROPENIA, UNSPECIFIED SNOMED Code(s): 235109987 Plan: No evidence of Heparin use in recent or this admission Continue to Hold AC therapy and NSAIDS Bicytopenia work-up ordered Likely secondary to hep c and recent treatment and should recover
[2021-11-22 15:26] LABS: Complement C3 38.4 mg/dL (80.0-207.0)
--- NOTE | 2021-11-22 18:21 | P.PN ---
Progress Note - Text Progress Note Date: 11/22/21 I saw and examined the patient,reviewed [employer] note and agree with plan. The concern is that his platelets conts significantly dropped compared to his baseline,also he is significantly neuthropenic. Althougth his could be secondary to peripheral sequestration from portal hypertension (he has splennomegaly on his exam),however,underlying bone marrow pathology should be ruled out,may consider a bone marrow biopsy,also in DDX is vasculitis D/W the patient,he is agrreable for a bone marrow biopsy.
[2021-11-22 18:24] LABS: Protein, Total 5.5 g/dL (6.2-8.2)
[2021-11-22] MEDS: IOPAMIDOL CONTRAST (ORAL USE) VIAL PO PRN ×2 (18:28→19:20)
[2021-11-22 18:36] LABS: % Iron Saturation 7.28 (15.00-50.00)
[2021-11-22 20:01] LABS: Appearance,Urine Clear (Clear); Bilirubin,Urine Negative (Negative); Blood,Urine Negative (Negative); Color,Urine Yellow; Glucose,Urine (UA) Negative (Negative); Ketones,Urine Negative (Negative); Leukocyte Esterase,Urine Negative (Negative); Nitrite,Urine Negative (Negative); Protein,Urine Trace (Negative); Specific Gravity,Urine 1.017 (1.001-1.035)
--- NOTE | 2021-11-22 20:50 | CT ---
EXAMINATION TYPE: CT ChestAbdPelvis w con DATE OF EXAM: 11/22/2021 COMPARISON: None HISTORY: Purpura, Bicytopenia, Concern of adenpathy CT DLP: 721.3 mGycm Automated exposure control for dose reduction was used. CONTRAST: Performed with IV Contrast, patient injected with 80 mL of Isovue 300. Images obtained from the thoracic inlet to the floor the pelvis with IV contrast. There is diffuse bony emphysema. Heart size is normal. There are no hilar masses. Thoracic aorta is intact. No aneurysm or dissection. There is 2 x 1 cm lymph node at the aortopulmonary window. There i s 1.5 cm pretracheal lymph node. Thoracic aorta is intact. No aneurysm or dissection. No evidence of filling defect in the pulmonary arteries. There are multiple calcified granulomata in the mediastinum and at the pulmonary colin. There is some mild increased reticular density at the lung bases. No pleu ral effusion. The spleen is moderately enlarged and measures 23 cm. Liver is intact. The bile ducts are not dilated . Gallbladder is contracted. There is no pancreatic mass. Stomach is intact. There is no evidence of any significant retroperitoneal adenopathy. There is normal contrast opacification of the small bowel . No bowel obstruction. There is no adrenal mass. Kidneys show satisfactory contrast opacification. There is 2 cm posterior r ight renal cortical cyst. Delayed images showed normal renal excretion. No sign of renal obstruction. There is no evidence of bladder mass. Urinary bladder distends smoothly. There is no inguinal hernia . No free fluid in the pelvis. Appendix is inferior and appears normal. There is no ascites or free a ir. No intestinal wall thickening. No mesenteric edema. The thoracic and lumbar vertebrae appear inta ct. No compression fracture. Bony pelvis is intact. The hip joints are intact. Sternum is intact. IMPRESSION: Massive splenomegaly. Old granulomatous disease. Nonspecific mediastinal and bronchial lymph nodes. T his could relate to sarcoidosis. Pulmonary emphysema.
[2021-11-23] MEDS: FAMOTIDINE 20 MG TAB PO SCH ×2 (08:34→21:36)
[2021-11-23] MEDS: SPIRONOLACTONE 25 MG TAB PO SCH (08:34)
--- NOTE | 2021-11-23 09:58 | P.PN ---
Subjective Progress Note Date: 11/23/21 Principal diagnosis: pancytopenia in follow-up today patient has no specific physical complaints. He is reporting that the purpura on his bilateral lower extremities is improving, as is the left lower extremity swelling. Objective - Vital Signs Vital signs: Vital Signs Temp 97.6 F 11/23/21 07:04 Pulse 61 11/23/21 07:04 Resp 16 11/23/21 07:04 BP 167/96 11/23/21 07:04 Pulse Ox 100 11/23/21 07:04 Intake & Output 11/22/21 11/23/21 11/23/21 18:59 06:59 18:59 Intake Total 118 Balance 118 Intake: Oral 118 Other: # Voids 1 2 - Constitutional General appearance: Present: average body habitus, cooperative, no acute distress - EENT Eyes: Present: anicteric sclerae, EOMI ENT: Present: hearing grossly normal - Respiratory Respiratory: bilateral: CTA - Cardiovascular Rhythm: regular Heart sounds: normal: S1, S2 Abnormal Heart Sounds: Absent: systolic murmur, diastolic murmur, rub, S3 Gallop, S4 Gallop, click, other - Peripheral edema leg Peripheral Edema: right: 1+, left: 2+ - Gastrointestinal General gastrointestinal: Present: normal bowel sounds, soft, splenomegaly - Integumentary Integumentary Comment(s): bilateral lower extremity purpura - Neurologic Neurologic: Present: CNII-XII intact - Musculoskeletal Musculoskeletal: Present: generalized weakness - Psychiatric Psychiatric: Present: A&O x's 3, intact judgment & insight - Labs CBC & Chem 7: 11/22/21 05:59 11/22/21 05:59 Labs: Abnormal Lab Results - Last 24 Hours (Table) 11/22/21 11/22/21 11/22/21 Range/Units 05:59 05:59 11:17 WBC 1.4 L* (3.8-10.6) k/uL RBC 4.27 L (4.30-5.90) m/uL Hgb 11.6 L (13.0-17.5) gm/dL Hct 35.2 L (39.0-53.0) % Plt Count 44 L (150-450) k/uL Neutrophils # (Manual) 0.59 L (1.3-7.7) k/uL Lymphocytes # (Manual) 0.70 L (1.0-4.8) k/uL Pathologist Review See comment A D-Dimer 1.30 H (<0.60) mg/L FEU Iron (65-175) ug/dL % Saturation (15.00-50.00) Total Protein (PEP) (6.2-8.2) g/dL Folate (4.40-31.00) ng/mL Urine Protein (Negative) IgG (700.0-1600.0) mg/dL IgM (40.0-280.0) mg/dL Complement C3 38.4 L (80.0-207.0) mg/dL Complement C4 2.2 L (10.0-53.0) mg/dL 11/22/21 11/22/21 11/22/21 Range/Units 11:17 11:17 11:17 WBC (3.8-10.6) k/uL RBC (4.30-5.90) m/uL Hgb (13.0-17.5) gm/dL Hct (39.0-53.0) % Plt Count (150-450) k/uL Neutrophils # (Manual) (1.3-7.7) k/uL Lymphocytes # (Manual) (1.0-4.8) k/uL Pathologist Review D-Dimer (<0.60) mg/L FEU Iron 31 L (65-175) ug/dL % Saturation 7.28 L (15.00-50.00) Total Protein (PEP) 5.5 L (6.2-8.2) g/dL Folate 3.60 L (4.40-31.00) ng/mL Urine Protein (Negative) IgG (700.0-1600.0) mg/dL IgM (40.0-280.0) mg/dL Complement C3 (80.0-207.0) mg/dL Complement C4 (10.0-53.0) mg/dL 11/22/21 11/22/21 Range/Units 11:17 19:39 WBC (3.8-10.6) k/uL RBC (4.30-5.90) m/uL Hgb (13.0-17.5) gm/dL Hct (39.0-53.0) % Plt Count (150-450) k/uL Neutrophils # (Manual) (1.3-7.7) k/uL Lymphocytes # (Manual) (1.0-4.8) k/uL Pathologist Review D-Dimer (<0.60) mg/L FEU Iron (65-175) ug/dL % Saturation (15.00-50.00) Total Protein (PEP) (6.2-8.2) g/dL Folate (4.40-31.00) ng/mL Urine Protein Trace H (Negative) IgG 164.0 L (700.0-1600.0) mg/dL IgM 1305.0 H (40.0-280.0) mg/dL Complement C3 (80.0-207.0) mg/dL Complement C4 (10.0-53.0) mg/dL - Imaging and Cardiology CT scan - abdomen: report reviewed CT scan - chest: report reviewed CT scan - pelvis: report reviewed Assessment and Plan (1) Neutropenia Current Visit: Yes Status: Acute Priority: High Code(s): D70.9 - NEUTROPENIA, UNSPECIFIED SNOMED Code(s): 220785743 (2) Pancytopenia Current Visit: Yes Status: Acute Priority: High Code(s): D61.818 - OTHER PANCYTOPENIA SNOMED Code(s): 593144635 (3) History of hepatitis C Current Visit: No Status: Chronic Priority: Low Code(s): Z86.19 - PERSONAL HISTORY OF OTHER INFECTIOUS AND PARASITIC DISEASES SNOMED Code(s): 87704821739457 Plan: Reviewed with patient CT of the chest abdomen and pelvis. He has splenomegaly, some mediastinal lymphadenopathy, most likely representing granulomatous disease and emphysema. Patient has low iron saturation as well as folate. Folic acid will be initiated. Differential diagnosis includes Waldenstrm's macroglobulinemia or cryoglobulinemic vasculitis. IgG level is low with a significantly elevated IgM level. Waldenstroms has increase of IgM ab, Hep C infection is a risk factor. This leads to hyperviscosity, nerve damage, anemia and kidney disease. Cryoglobulinemia and vasculitis occur when the IgM ab forms immune complexes with cold exposure. SPEP/immunofixation still pending this AM. Did discuss with patient the possibility of a bone marrow biopsy. He was agreeable to the same as long as we let him know when it is going to happen. This will be planned for outpt.
--- NOTE | 2021-11-23 11:30 | P.PN ---
Subjective Progress Note Date: 11/22/21 Patient is a 66-year-old male with a PMH of hepatitis C, recently completed a course of curative intent therapy, hypertension, and tobacco abuse who presents the emergency room with complaints of lower extremity bruising and left lower extremity edema. Patient reports that his symptoms have been ongoing for the past 1 month, for which he has been attempting to see his PCP but has been unable to make an appointment. He reports that the bruising and no swelling have gradually worsened. He denied any additional complaints. He denied experiencing leg pain. Denied any history of blood clots. He denied experiencing fever, chills, weight loss, chest pain, shortness of breath, nausea, vomiting, abdominal pain, diarrhea. Left lower extremity venous Doppler in the emergency room was negative. Left-sided foot x-ray revealed soft tissue swelling. Laboratory evaluation was remarkable for pancytopenia with a WBC count 1.6, hemoglobin 12.8, and platelet count 46. 3/: Repeat blood work reveals WBC 1.4, hemoglobin 11.6, platelet count 44. Sed rate 20. Peripheral smear demonstrates pancytopenia with essentially normal morphology, findings could be due to primary bone marrow hypoplasia versus exogenous suppression or a myelophthisic process. patient is followed by oncology and CAT scan of the chest abdomen and pelvis have been ordered. Patient states he has history of hepatitis C and received treatment last summer and has not heard the results from his GI doctor. Consult will be added for GI services. Review Of Systems: Constitutional: No fever, no chills, no night sweats. No weight change. No weakness, fatigue or lethargy. No daytime sleepiness. EENT: No headache. No blurred vision or double vision, no loss of vision. No loss of Hearing, no ringing in the ears, no dizziness. No nasal drainage or congestion. No epistaxis. No sore throat. Lungs: No shortness of breath, cough, no sputum production. No wheezing. Cardiovascular: No chest pain, no lower extremity edema. No palpitations. No paroxysmal nocturnal dyspnea. No orthopnea. No lightheadedness or dizziness. No syncopal episodes. Abdominal: No abdominal pain. No nausea, vomiting. No diarrhea. No con stipation. No bloody or tarry stools.. No loss of appetite. Genitourinary: No dysuria, increased frequency, urgency. No urinary retention. Musculoskeletal: No myalgias. No muscle weakness, no gait dysfunction, no frequent falls. No back pain. No neck pain. Integumentary: No wounds, no lesions. No rash or pruritus. No unusual bruising. No change in hair or nails. Neurologic: No aphasia. No facial droop. No change in mentation. No head injury. No headache. No paralysis. No paresthesia. Psychiatric: No depression. No anxiety. No mood swings. Endocrine: No abnormal blood sugars. No weight change. No excessive sweating or thirst. No cold intolerance. Physical examination: General: non toxic, no distress, appears at stated age, normal weight Derm: Petechiae with purpura of LLE greater than RLE noted, warm, dry Head: atraumatic, normocephalic, symmetric Eyes: EOMI, no lid lag, anicteric sclera, pupils equal round reactive to light ENT: Nose and ears atraumatic, no thrush, no pharyngeal erythema Neck: No thyromegaly, no cervical lymphadenopathy, trachea midline, supple Mouth: no lip lesion, mucus membranes moist Cardiovascular: S1S2 reg, no murmur, positive posterior tibial pulse bilateral, 1+ LLE edema noted, capillary refill less than 2 seconds Lungs: CTA bilateral, no rhonchi, no rales , no accessory muscle use Abdominal: soft, nontender to palpation, no guarding, no appreciable organomegaly, normal bowel sounds Ext: no gross muscle atrophy, muscle strength 5 out of 5 in all 4 extremities grossly, no contractures, Neuro: CN II-XI grossly intact, light touch intact all 4 extremities, finger to nose within normal limits, Psych: Alert, oriented, anger noted Assessment/plan Pancytopenia with purpura in patient with history of Hepatitis C -Hematology consult, consult added for GI -Patient may need Bone marrow biopsy -Obtain CRP, C3, C4, ANCA, DVT prophylaxis -Hold off on IPCDs in setting of significant LE purpura The patient is admitted with an anticipated less than 2 midnight stay for evaluation of pancytopenia CODE STATUS: Full Code Discussed with: Patient Anticipated discharge date: in am Anticipated discharge place: Home Impression and plan of care have been directed as dictated by the signing physician. Atiya Goldsmith nurse practitioner acting as scribe for signing physician. Objective - Vital Signs Vital signs: Vital Signs Temp 98.7 F 11/22/21 07:00 Pulse 60 11/22/21 07:00 Resp 18 11/22/21 07:00 BP 137/85 11/22/21 07:00 Pulse Ox 97 11/22/21 07:00 Intake & Output 11/21/21 11/22/21 11/22/21 18:59 06:59 18:59 Weight 69.853 kg 69.853 kg Other: # Voids 1 - Labs CBC & Chem 7: 11/22/21 05:59 11/22/21 05:59 Labs: Abnormal Lab Results - Last 24 Hours (Table) 11/21/21 11/21/21 11/22/21 Range/Units 19:06 19:06 05:59 WBC 1.6 L 1.4 L* (3.8-10.6) k/uL RBC 4.27 L (4.30-5.90) m/uL Hgb 12.8 L 11.6 L (13.0-17.5) gm/dL Hct 38.4 L 35.2 L (39.0-53.0) % Plt Count 46 L 44 L (150-450) k/uL Neutrophils # (Manual) 0.80 L (1.3-7.7) k/uL Lymphocytes # (Manual) 0.67 L (1.0-4.8) k/uL Sodium 130 L (137-145) mmol/L Carbon Dioxide 21 L (22-30) mmol/L Calcium 7.9 L (8.4-10.2) mg/dL Total Protein 5.8 L (6.3-8.2) g/dL Albumin 3.0 L (3.5-5.0) g/dL 11/22/21 Range/Units 05:59 WBC (3.8-10.6) k/uL RBC (4.30-5.90) m/uL Hgb (13.0-17.5) gm/dL Hct (39.0-53.0) % Plt Count (150-450) k/uL Neutrophils # (Manual) (1.3-7.7) k/uL Lymphocytes # (Manual) (1.0-4.8) k/uL Sodium 131 L (137-145) mmol/L Carbon Dioxide (22-30) mmol/L Calcium 7.9 L (8.4-10.2) mg/dL Total Protein (6.3-8.2) g/dL Albumin (3.5-5.0) g/dL
--- NOTE | 2021-11-23 11:43 | P.PN ---
Subjective Progress Note Date: 11/23/21 Patient is a 66-year-old male with a PMH of hepatitis C, recently completed a course of curative intent therapy, hypertension, and tobacco abuse who presents the emergency room with complaints of lower extremity bruising and left lower extremity edema. Patient reports that his symptoms have been ongoing for the past 1 month, for which he has been attempting to see his PCP but has been unable to make an appointment. He reports that the bruising and no swelling have gradually worsened. He denied any additional complaints. He denied experiencing leg pain. Denied any history of blood clots. He denied experiencing fever, chills, weight loss, chest pain, shortness of breath, nausea, vomiting, abdominal pain, diarrhea. Left lower extremity venous Doppler in the emergency room was negative. Left-sided foot x-ray revealed soft tissue swelling. Laboratory evaluation was remarkable for pancytopenia with a WBC count 1.6, hemoglobin 12.8, and platelet count 46. 3/28: Repeat blood work reveals WBC 1.4, hemoglobin 11.6, platelet count 44. Sed rate 20. Peripheral smear demonstrates pancytopenia with essentially normal morphology, findings could be due to primary bone marrow hypoplasia versus exogenous suppression or a myelophthisic process. patient is followed by oncology and CAT scan of the chest abdomen and pelvis have been ordered. Patient states he has history of hepatitis C and received treatment last summer and has not heard the results from his GI doctor. Consult will be added for GI services. 11/23: CT of the chest abdomen pelvis with contrast revealed massive splenomegaly . 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 Nonspecific mediastinal and bronchial lymph nodes. This could relate to sarcoidosis. Pulmonary emphysema. Cardiology has discussed with the patient option of bone marrow biopsy. Patient has been seen by GI with recommendations to continue supportive care, started patient on Aldactone 50 mg daily. Most recent hepatitis C RNA nonreactive and patient follow-up as an outpatient with GI next month as scheduled. Review Of Systems: Constitutional: No fever, no chills, no night sweats. No weight change. No weakness, reports fatigue. No daytime sleepiness. EENT: No headache. No blurred vision or double vision, no loss of vision. No loss of Hearing, no ringing in the ears, no dizziness. No nasal drainage or congestion. No epistaxis. No sore throat. Lungs: No shortness of breath, cough, no sputum production. No wheezing. Cardiovascular: No chest pain, noted lower extremity edema. No palpitations. No paroxysmal nocturnal dyspnea. No orthopnea. No lightheadedness or dizziness. No syncopal episodes. Abdominal: No abdominal pain. No nausea, vomiting. No diarrhea. No constipation. No bloody or tarry stools.. No loss of appetite. Genitourinary: No dysuria, increased frequency, urgency. No urinary retention. Musculoskeletal: No myalgias. No muscle weakness, no gait dysfunction, no frequent falls. No back pain. No neck pain. Integumentary: No wounds, no lesions. Noted rash or pruritus. Color changes to the lower extremities. Noted unusual bruising. No change in hair or nails. Neurologic: No aphasia. No facial droop. No change in mentation. No head injury. No headache. No paralysis. No paresthesia. Psychiatric: No depression. No anxiety. No mood swings. Endocrine: No abnormal blood sugars. No weight change. Physical examination: General: non toxic, no distress, appears at stated age, normal weight Derm: Petechiae with purpura of LLE greater than RLE noted, warm, dry Head: atraumatic, normocephalic, symmetric Eyes: EOMI, no lid lag, anicteric sclera, pupils equal round reactive to light ENT: Nose and ears atraumatic, no thrush, no pharyngeal erythema Neck: No thyromegaly, no cervical lymphadenopathy, trachea midline, supple Mouth: no lip lesion, mucus membranes moist Cardiovascular: S1S2 reg, no murmur, positive posterior tibial pulse bilateral, 1+ LLE edema noted, capillary refill less than 2 seconds Lungs: CTA bilateral, no rhonchi, no rales , no accessory muscle use Abdominal: soft, nontender to palpation, no guarding, no appreciable organomegaly, normal bowel sounds Ext: no gross muscle atrophy, muscle strength 5 out of 5 in all 4 extremities grossly, no contractures, Neuro: CN II-XI grossly intact, light touch intact all 4 extremities, finger to nose within normal limits, Psych: Alert, oriented, anger noted Assessment/plan Pancytopenia with purpura in patient with history of Hepatitis C -Hematology consult, consult added for GI -Patient may need Bone marrow biopsy- -Obtain CRP, C3, C4, ANCA, History of hepatitis C. Consult with GI appreciated, started patient on Aldactone DVT prophylaxis -Hold off on IPCDs in setting of significant LE purpura CODE STATUS: Full Code Discussed with: Patient Anticipated discharge date: in am Anticipated discharge place: Home Impression and plan of care have been directed as dictated by the signing physician. Atiya Goldsmith nurse practitioner acting as scribe for signing physician. Objective - Vital Signs Vital signs: Vital Signs Temp 97.6 F 11/23/21 07:04 Pulse 61 11/23/21 07:04 Resp 16 11/23/21 07:04 BP 167/96 11/23/21 07:04 Pulse Ox 100 11/23/21 07:04 Intake & Output 11/22/21 11/23/21 11/23/21 18:59 06:59 18:59 Intake Total 118 Balance 118 Intake: Oral 118 Other: # Voids 1 2 - Labs CBC & Chem 7: 11/22/21 05:59 11/22/21 05:59 Labs: Abnormal Lab Results - Last 24 Hours (Table) 11/22/21 11/22/21 11/22/21 Range/Units 05:59 05:59 08:49 WBC 1.4 L* (3.8-10.6) k/uL RBC 4.27 L (4.30-5.90) m/uL Hgb 11.6 L (13.0-17.5) gm/dL Hct 35.2 L (39.0-53.0) % Plt Count 44 L (150-450) k/uL Neutrophils # (Manual) 0.59 L (1.3-7.7) k/uL Lymphocytes # (Manual) 0.70 L (1.0-4.8) k/uL Pathologist Review See comment A ESR 20 H (0-15) mm/hr D-Dimer (<0.60) mg/L FEU Iron (65-175) ug/dL % Saturation (15.00-50.00) C-Reactive Protein 1.3 H (<1.0) mg/dL Total Protein (PEP) (6.2-8.2) g/dL Folate (4.40-31.00) ng/mL Urine Protein (Negative) IgG (700.0-1600.0) mg/dL IgM (40.0-280.0) mg/dL Complement C3 38.4 L (80.0-207.0) mg/dL Complement C4 2.2 L (10.0-53.0) mg/dL 11/22/21 11/22/21 11/22/21 Range/Units 11:17 11:17 11:17 WBC (3.8-10.6) k/uL RBC (4.30-5.90) m/uL Hgb (13.0-17.5) gm/dL Hct (39.0-53.0) % Plt Count (150-450) k/uL Neutrophils # (Manual) (1.3-7.7) k/uL Lymphocytes # (Manual) (1.0-4.8) k/uL Pathologist Review ESR (0-15) mm/hr D-Dimer 1.30 H (<0.60) mg/L FEU Iron 31 L (65-175) ug/dL % Saturation 7.28 L (15.00-50.00) C-Reactive Protein (<1.0) mg/dL Total Protein (PEP) (6.2-8.2) g/dL Folate 3.60 L (4.40-31.00) ng/mL Urine Protein (Negative) IgG (700.0-1600.0) mg/dL IgM (40.0-280.0) mg/dL Complement C3 (80.0-207.0) mg/dL Complement C4 (10.0-53.0) mg/dL 11/22/21 11/22/21 11/22/21 Range/Units 11:17 11:17 19:39 WBC (3.8-10.6) k/uL RBC (4.30-5.90) m/uL Hgb (13.0-17.5) gm/dL Hct (39.0-53.0) % Plt Count (150-450) k/uL Neutrophils # (Manual) (1.3-7.7) k/uL Lymphocytes # (Manual) (1.0-4.8) k/uL Pathologist Review ESR (0-15) mm/hr D-Dimer (<0.60) mg/L FEU Iron (65-175) ug/dL % Saturation (15.00-50.00) C-Reactive Protein (<1.0) mg/dL Total Protein (PEP) 5.5 L (6.2-8.2) g/dL Folate (4.40-31.00) ng/mL Urine Protein Trace H (Negative) IgG 164.0 L (700.0-1600.0) mg/dL IgM 1305.0 H (40.0-280.0) mg/dL Complement C3 (80.0-207.0) mg/dL Complement C4 (10.0-53.0) mg/dL
--- NOTE | 2021-11-23 12:58 | P.PN ---
Subjective Progress Note Date: 11/23/21 Patient is seen as a follow-up. He has a history of hepatitis C which was treated with Harvoni, which he believes his last treatment was in February or March 2021. He presented to the hospital with complaints of left lower extremity swelling with discoloration to his leg. Mom he does have a history of cirrhosis from underlying liver disease related to his hepatitis C. He is followed with Dr. Mcelroy in the office. He is scheduled next month. He is denying any abdominal pain nausea or vomiting. He's been pancytopenic, hematology is following closely. He did undergo a CT of the chest, abdomen and pelvis which reports moderately enlarged spleen measuring 23 cm. Old granulomatous disease, nonspecific mediastinal and bronchial lymph noes. Pulmonary emphysema. Today he is without any complaints. He denies abdominal pain, nausea or vomiting. Objective - Vital Signs Vital signs: Vital Signs Temp 97.6 F 11/23/21 07:04 Pulse 61 11/23/21 07:04 Resp 16 11/23/21 07:04 BP 167/96 11/23/21 07:04 Pulse Ox 100 11/23/21 07:04 Intake & Output 11/22/21 11/23/21 11/23/21 18:59 06:59 18:59 Intake Total 118 Balance 118 Intake: Oral 118 Other: # Voids 1 2 - Exam General appearance: The patient is alert, oriented, appears in no acute distress. HET: Head is normocephalic and atraumatic. Conjunctiva pink. Sclera anicteric. Neck: Supple without lymphadenopathy. Abdomen: Soft, nontender, nondistended with bowel sounds. No guarding or rig idity. Extremities: Normal skin color and turgor. Left lower extremity edema with purpura Skin: No rashes, no jaundice Neurological: No focal deficits. Alert and oriented x 3. - Labs CBC & Chem 7: 11/22/21 05:59 11/22/21 05:59 Labs: Abnormal Lab Results - Last 24 Hours (Table) 11/22/21 11/22/21 11/22/21 Range/Units 05:59 05:59 11:17 WBC 1.4 L* (3.8-10.6) k/uL RBC 4.27 L (4.30-5.90) m/uL Hgb 11.6 L (13.0-17.5) gm/dL Hct 35.2 L (39.0-53.0) % Plt Count 44 L (150-450) k/uL Neutrophils # (Manual) 0.59 L (1.3-7.7) k/uL Lymphocytes # (Manual) 0.70 L (1.0-4.8) k/uL Pathologist Review See comment A D-Dimer 1.30 H (<0.60) mg/L FEU Iron (65-175) ug/dL % Saturation (15.00-50.00) C-Reactive Protein 1.3 H (<1.0) mg/dL Total Protein (PEP) (6.2-8.2) g/dL Folate (4.40-31.00) ng/mL Urine Protein (Negative) IgG (700.0-1600.0) mg/dL IgM (40.0-280.0) mg/dL Complement C3 38.4 L (80.0-207.0) mg/dL Complement C4 2.2 L (10.0-53.0) mg/dL 11/22/21 11/22/21 11/22/21 Range/Units 11:17 11:17 11:17 WBC (3.8-10.6) k/uL RBC (4.30-5.90) m/uL Hgb (13.0-17.5) gm/dL Hct (39.0-53.0) % Plt Count (150-450) k/uL Neutrophils # (Manual) (1.3-7.7) k/uL Lymphocytes # (Manual) (1.0-4.8) k/uL Pathologist Review D-Dimer (<0.60) mg/L FEU Iron 31 L (65-175) ug/dL % Saturation 7.28 L (15.00-50.00) C-Reactive Protein (<1.0) mg/dL Total Protein (PEP) 5.5 L (6.2-8.2) g/dL Folate 3.60 L (4.40-31.00) ng/mL Urine Protein (Negative) IgG (700.0-1600.0) mg/dL IgM (40.0-280.0) mg/dL Complement C3 (80.0-207.0) mg/dL Complement C4 (10.0-53.0) mg/dL 11/22/21 11/22/21 Range/Units 11:17 19:39 WBC (3.8-10.6) k/uL RBC (4.30-5.90) m/uL Hgb (13.0-17.5) gm/dL Hct (39.0-53.0) % Plt Count (150-450) k/uL Neutrophils # (Manual) (1.3-7.7) k/uL Lymphocytes # (Manual) (1.0-4.8) k/uL Pathologist Review D-Dimer (<0.60) mg/L FEU Iron (65-175) ug/dL % Saturation (15.00-50.00) C-Reactive Protein (<1.0) mg/dL Total Protein (PEP) (6.2-8.2) g/dL Folate (4.40-31.00) ng/mL Urine Protein Trace H (Negative) IgG 164.0 L (700.0-1600.0) mg/dL IgM 1305.0 H (40.0-280.0) mg/dL Complement C3 (80.0-207.0) mg/dL Complement C4 (10.0-53.0) mg/dL Assessment and Plan (1) History of hepatitis C Narrative/Plan: A 66-year-old male who states he was diagnosed and treated for hepatitis C approximately one year ago presented to the emergency department yesterday evening with complaints of lower extremity swelling with discoloration to the left lower extremity. He was noted to have pancytopenia on admission. Patient states he has been treated about one year ago for his hepatitis C and follows with Dr. Turner's office. He is unsure of his treatment however likely Jeannette. Gastroenterology was consulted as patient had questions if his treatment was successful. It does look like he had some outpatient blood work done September 2021 that showed a negative hepatitis C RNA. He is denying any abdominal pain, nausea, vomiting, or abdominal distention. States he's had lower extremity swelling for at least last 1 month's duration with some discoloration to the left lower extremity. He denies any previous history of thrombocytopenia, denies any outpatient follow-up with hematology. He denies any signs or sym ptoms of bleeding. No GI blood loss reported. Today's labs WBC 1.4 hemoglobin 11.6 hematocrit 35, platelet count 44,000 ESR 20 CRP pending, total bilirubin 1.1 AST 21 and T7 alk phos 69. He had previous AFP tumor marker which was negative less than 1.82 Current Visit: No Status: Chronic Priority: Low Code(s): Z86.19 - PERSONAL HISTORY OF OTHER INFECTIOUS AND PARASITIC DISEASES SNOMED Code(s): 98120266030379 (2) Purpura Current Visit: Yes Status: Acute Code(s): D69.2 - OTHER NONTHROMBOCYTOPENIC PURPURA SNOMED Code(s): 512677799 (3) Pancytopenia Narrative/Plan: Hematology following patient closely for pancytopenia and splenomegaly. Current Visit: Yes Status: Acute Code(s): D61.818 - OTHER PANCYTOPENIA SNOMED Code(s): 800319570 (4) Splenomegaly Narrative/Plan: Splenomegaly secondary to underlying cirrhosis of the liver. Current Visit: Yes Status: Acute Code(s): R16.1 - SPLENOMEGALY, NOT ELSEWHERE CLASSIFIED SNOMED Code(s): 19896560 Plan: 1. Continue symptomatic and supportive care 2. Continue with recommendations and workup from hematology for pancytopenia and splenomegaly 3. Most recent hepatitis C RNA nonreactive 4. Continue outpatient follow-up as scheduled with gastroenterology Thank you for this consultation, we will continue to follow. Dr. Freya Mcelroy I agree with the dictator's note, documented as a scribe by Aarti Quintanilla.
[2021-11-23 14:57] LABS: C-ANCA <1:20 Titer (<1:20)
[2021-11-23 14:57] LABS: Albumin 3.01 g/dL (3.80-4.90); Gamma Globulin 0.67 g/dL (0.70-1.50)
[2021-11-23] MEDS: NICOTINE 14MG/24HR PATCH TRANSDERM SCH (18:07)
[2021-11-23] MEDS: FOLIC ACID 1 MG TAB PO SCH (18:07)
[2021-11-24 07:22] LABS: Free Kappa Lt Chain Qnt, Serum 40.52 mg/dL (0.33-1.94); Free Lambda Lt Chain Qnt, Seru 1.44 mg/dL (0.57-2.63)
[2021-11-24 07:41] LABS: Methylmalonic Acid 0.25 umol/L (<0.40)
[2021-11-24] MEDS: FAMOTIDINE 20 MG TAB PO SCH ×2 (08:52→19:51)
[2021-11-24] MEDS: lisinopriL 20 MG TAB PO SCH (08:52)
[2021-11-24] MEDS: BACLOFEN 10 MG TAB PO SCH (08:53)
[2021-11-24] MEDS: SPIRONOLACTONE 25 MG TAB PO SCH (08:53)
[2021-11-24] MEDS: NICOTINE 14MG/24HR PATCH TRANSDERM SCH (08:54)
[2021-11-24 09:19] LABS: HCT 37.8 % (39.0-53.0); MCH 26.3 pg (25.0-35.0); MCHC 31.8 g/dL (31.0-37.0); MCV 82.9 fL (80.0-100.0); Mean Platelet Volume 16.2; RBC 4.56 m/uL (4.30-5.90); RDW 14.1 % (11.5-15.5)
[2021-11-24 09:28] LABS: WBC 1.4 k/uL (3.8-10.6)
--- NOTE | 2021-11-24 10:48 | P.PN ---
Subjective Progress Note Date: 11/24/21 Long discussion with son, he is concerned about transportation, safety and plan of care at discharge. I have asked case consultant and Social work to assist with homecare/PT/OT at discharge and transportation for ongoing tests. BM biopsy scheduled next week Monday at 7am, son aware Objective - Vital Signs Vital signs: Vital Signs Temp 97.4 F L 11/24/21 07:54 Pulse 80 11/24/21 07:54 Resp 18 11/24/21 07:54 BP 151/103 11/24/21 07:54 Pulse Ox 100 11/24/21 07:54 Intake & Output 11/23/21 11/24/21 11/24/21 18:59 06:59 18:59 Other: # Voids 6 1 - Exam - Constitutional General appearance: Present: average body habitus, cooperative, no acute distress - EENT Eyes: Present: anicteric sclerae, EOMI ENT: Present: hearing grossly normal - Respiratory Respiratory: bilateral: CTA - Cardiovascular Rhythm: regular Heart sounds: normal: S1, S2 Abnormal Heart Sounds: Absent: systolic murmur, diastolic murmur, rub, S3 Gallop, S4 Gallop, click, other - Peripheral edema leg Peripheral Edema: right: 1+, left: 2+ - Gastrointestinal General gastrointestinal: Present: normal bowel sounds, soft, splenomegaly - Integumentary Integumentary Comment(s): bilateral lower extremity purpura - Neurologic Neurologic: Present: CNII-XII intact - Labs CBC & Chem 7: 11/24/21 05:36 11/24/21 05:56 Labs: Abnormal Lab Results - Last 24 Hours (Table) 11/22/21 11/23/21 11/24/21 Range/Units 11:17 08:11 05:36 WBC 1.4 L* (3.8-10.6) k/uL Hgb 12.0 L (13.0-17.5) gm/dL Hct 37.8 L (39.0-53.0) % Albumin (PEP) 3.01 L (3.80-4.90) g/dL [id number] 0.45 H (0.10-0.40) g/dL Beta Globulins 0.58 L (0.60-1.30) g/dL Gamma Globulins 0.67 L (0.70-1.50) g/dL Rheumatoid Factor 257 H (0-15) IU/mL Free Gibson LC, Quant 40.52 H (0.33-1.94) mg/dL Microbiology - Last 24 Hours (Table) 11/22/21 11:17 Blood Culture - Preliminary Blood No Growth after 24 hours Assessment and Plan (1) History of hepatitis C Narrative/Plan: - Treated with Harvoni in February 2021 - Continues with Chronic liver disease per GI - Hepatitis is cleared - Discussed with GI Current Visit: No Status: Chronic Priority: Low Code(s): Z86.19 - PERSONAL HISTORY OF OTHER INFECTIOUS AND PARASITIC DISEASES SNOMED Code(s): 10261659561227 (2) Lower extremity edema Narrative/Plan: LLE Edema and bile Purpura No obvious cause for LLE edema, pain in lower abdomen Current Visit: Yes Status: Acute Code(s): R60.0 - LOCALIZED EDEMA SNOMED Code(s): 511601196 (3) Purpura Narrative/Plan: DIC work-up Anca Labs ordered Suspected Vasculitis versus Myeloproliferative disorder Current Visit: Yes Status: Acute Code(s): D69.2 - OTHER NONTHROMBOCYTOPENIC PURPURA SNOMED Code(s): 040286650 (4) Thrombocytopenia Narrative/Plan: Likely from Liver disease cirrhosis, 0 No NSAIDS or ASA at this time, discussed with patient Patient advised to refrain from ETOH Current Visit: Yes Status: Acute Code(s): D69.6 - THROMBOCYTOPENIA, UNSPECIFIED SNOMED Code(s): 836327965 (5) Neutropenia Narrative/Plan: Possibly related to underlying liver disease, however with extreme decrease other etiologies need to be considered - Infectious and malignancy work-up - If infection found can support with growth factor Current Visit: Yes Status: Acute Priority: High Code(s): D70.9 - NEUTROPE BINH, UNSPECIFIED SNOMED Code(s): 910522178 Plan: No evidence of Heparin use in recent or this admission Continue to Hold AC therapy and NSAIDS Bicytopenia work-up ordered Likely secondary to hep c and recent treatment and should recover Social work to assist in checking insurance and setting up ride for BM Biopsy next week Check Bone scan and ok to be discharged from oncology standpoint Patient is very unsteady on feet, feel home with PT/OT would be in best safety needs
[2021-11-24 10:52] LABS: Platelet Count 76 k/uL (150-450)
[2021-11-24 12:09] LABS: ALT 6 U/L (4-49); AST 19 U/L (17-59); African American GFR (CKD) 86 (>60 ml/min/1.73 sqM); Albumin 2.9 g/dL (3.5-5.0); Albumin/Globulin Ratio 1.2; Alkaline Phosphatase 71 U/L (38-126); Anion Gap 5 mmol/L; Blood Urea Nitrogen 10 mg/dL (9-20); Calcium 8.1 mg/dL (8.4-10.2); Carbon Dioxide 27 mmol/L (22-30); Chloride 99 mmol/L (98-107); Globulin 2.5 g/dL; Glucose 93 mg/dL (74-99); Non-African American GFR(CKD) 74 (>60 ml/min/1.73 sqM); Potassium 4.9 mmol/L (3.5-5.1); Sodium 131 mmol/L (137-145); Total Protein 5.4 g/dL (6.3-8.2)
--- NOTE | 2021-11-24 13:24 | P.DS ---
Providers Date of admission: 11/21/21 21:54 Expected date of discharge: 11/24/21 Attending physician: Richard Mena Consults: 11/21/21 22:48 Consult Physician Routine Consulting Provider: Buck العلي Consult Reason/Comments: Thrombocytopenia Do you want consulting provider notified?: Yes, Notify in am 11/22/21 08:26 Consult Physician Routine Consulting Provider: Alexandra Mcelroy Consult Reason/Comments: hepatitis treatment completed Do you want consulting provider notified?: Yes Primary care physician: [facility] Course: Patient is a 66-year-old male with a PMH of hepatitis C, recently completed a course of curative intent therapy, hypertension, and tobacco abuse who presents the emergency room with complaints of lower extremity bruising and left lower extremity edema. Patient reports that his symptoms have been ongoing for the past 1 month, for which he has been attempting to see his PCP but has been unable to make an appointment. He reports that the bruising and no swelling have gradually worsened. He denied any additional complaints. He denied experiencing leg pain. Denied any history of blood clots. He denied experiencing fever, chills, weight loss, chest pain, shortness of breath, nausea, vomiting, abdominal pain, diarrhea. Left lower extremity venous Doppler in the emergency room was negative. Left-sided foot x-ray revealed soft tissue swelling. Laboratory evaluation was remarkable for pancytopenia with a WBC count 1.6, hemoglobin 12.8, and platelet count 46. 11/22: Repeat blood work reveals WBC 1.4, hemoglobin 11.6, platelet count 44. Sed rate 20. Peripheral smear demonstrates pancytopenia with essentially normal morphology, findings could be due to primary bone marrow hypoplasia versus exogenous suppression or a myelophthisic process. patient is followed by oncology and CAT scan of the chest abdomen and pelvis have been ordered. Patient states he has history of hepatitis C and received treatment last summer and has not heard the results from his GI doctor. Consult will be added for GI services. 11/23: CT of the chest abdomen pelvis with contrast revealed massive splenomegaly. 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 Nonspecific mediastinal and bronchial lymph nodes. This could relate to sarcoidosis. Pulmonary emphysema. Cardiology has discussed with the patient option of bone marrow biopsy. Patient has been seen by GI with recommendations to continue supportive care, started patient on Aldactone 50 mg daily. Most recent hepatitis C RNA nonreactive and patient follow-up as an outpatient with GI next month as scheduled. 11/24: Oncology is planning for outpatient bone marrow biopsy and this was discussed with the patient, oncology will discuss again with the patient's son. Patient has no new concerns. Repeat blood work today WBC 1.4, hemoglobin 12, platelet count 76. Requested Dr. Mena speak with the patient's son regarding demands the patient's stay in the hospital for bone marrow biopsy and etc. Patient will be discharged home today in stable condition. DISCHARGE DIAGNOSES Pancytopenia with purpura in patient with history of Hepatitis C History of hepatitis C. Splenomegaly DISCHARGE PLAN Home Greater than 35 minutes was utilized and coordinating patient's discharge. Impression and plan of care have been directed as dictated by the signing physician. Atiya Goldsmith nurse practitioner acting as scribe for signing physician. Patient Condition at Discharge: Good Plan - Discharge Summary New Discharge Prescriptions: No Action lisinopriL 40 mg PO DAILY Baclofen 10 mg PO DAILY Discharge Medication List Baclofen 10 mg PO DAILY 11/21/21 [History] lisinopriL 40 mg PO DAILY 11/21/21 [History] Follow up Appointment(s)/Referral(s): Richard Mena MD [Primary Care Provider] - 1 Week Alexandra Mcelroy MD [STAFF PHYSICIAN] - 2 Weeks (as schedulted in November) [facility], [NON-STAFF] - As Needed Ernesto Ambriz MD [STAFF PHYSICIAN] - 1 Week Activity/Diet/Wound Care/Special Instructions: FALSE PASS ON AGING TRANSPORTATION If you need a ride, remember it is only a telephone call away [place] [phone] [place] [phone] [facility] [phone] Discharge/Stand Alone Forms: Community Resources Discharge Disposition: HOME SELF-CARE
--- NOTE | 2021-11-24 14:08 | P.PN ---
Subjective Progress Note Date: 11/24/21 Patient is a 66-year-old male with a PMH of hepatitis C, recently completed a course of curative intent therapy, hypertension, and tobacco abuse who presents the emergency room with complaints of lower extremity bruising and left lower extremity edema. Patient reports that his symptoms have been ongoing for the past 1 month, for which he has been attempting to see his PCP but has been unable to make an appointment. He reports that the bruising and no swelling have gradually worsened. He denied any additional complaints. He denied experiencing leg pain. Denied any history of blood clots. He denied experiencing fever, chills, weight loss, chest pain, shortness of breath, nausea, vomiting, abdominal pain, diarrhea. Left lower extremity venous Doppler in the emergency room was negative. Left-sided foot x-ray revealed soft tissue swelling. Laboratory evaluation was remarkable for pancytopenia with a WBC count 1.6, hemoglobin 12.8, and platelet count 46. 3: Repeat blood work reveals WBC 1.4, hemoglobin 11.6, platelet count 44. Sed rate 20. Peripheral smear demonstrates pancytopenia with essentially normal morphology, findings could be due to primary bone marrow hypoplasia versus exogenous suppression or a myelophthisic process. patient is followed by oncology and CAT scan of the chest abdomen and pelvis have been ordered. Patient states he has history of hepatitis C and received treatment last summer and has not heard the results from his GI doctor. Consult will be added for GI services. 11/23: CT of the chest abdomen pelvis with contrast revealed massive splenomegaly . 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 Nonspecific mediastinal and bronchial lymph nodes. This could relate to sarcoidosis. Pulmonary emphysema. Cardiology has discussed with the patient option of bone marrow biopsy. Patient has been seen by GI with recommendations to continue supportive care, started patient on Aldactone 50 mg daily. Most recent hepatitis C RNA nonreactive and patient follow-up as an outpatient with GI next month as scheduled. 11/24: Oncology is planning for outpatient bone marrow biopsy and this was discussed with the patient, oncology will discuss again with the patient's son. Patient has no new concerns. Repeat blood work today WBC 1.4, hemoglobin 12, platelet count 76. Requested Dr. Mena speak with the patient's son regarding demands the patient's stay in the hospital for bone marrow biopsy and etc. patient was prepared for discharge but oncology has added and a bone scan and thus discharge him will be held until tomorrow. Review Of Systems: Constitutional: No fever, no chills, no night sweats. No weight change. No weakness, reports fatigue. No daytime sleepiness. EENT: No headache. No blurred vision or double vision, no loss of vision. No loss of Hearing, no ringing in the ears, no dizziness. No nasal drainage or congestion. No epistaxis. No sore throat. Lungs: No shortness of breath, cough, no sputum production. No wheezing. Cardiovascular: No chest pain, noted lower extremity edema. No palpitations. No paroxysmal nocturnal dyspnea. No orthopnea. No lightheadedness or dizziness. No syncopal episodes. Abdominal: No abdominal pain. No nausea, vomiting. No diarrhea. No constipation. No bloody or tarry stools.. No loss of appetite. Genitourinary: No dysuria, increased frequency, urgency. No urinary retention. Musculoskeletal: No myalgias. No muscle weakness, no gait dysfunction, no frequent falls. No back pain. No neck pain. Integumentary: No wounds, no lesions. Noted rash or pruritus. Color changes to the lower extremities. Noted unusual bruising. No change in hair or nails. Neurologic: No aphasia. No facial droop. No change in mentation. No head injury. No headache. No paralysis. No paresthesia. Psychiatric: No depression. No anxiety. No mood swings. Endocrine: No abnormal blood sugars. No weight change. Physical examination: General: non toxic, no distress, appears at stated age, normal weight Derm: Petechiae with purpura of LLE greater than RLE noted, warm, dry Head: atraumatic, normocephalic, symmetric Eyes: EOMI, no lid lag, anicteric sclera, pupils equal round reactive to light ENT: Nose and ears atraumatic, no thrush, no pharyngeal erythema Neck: No thyromegaly, no cervical lymphadenopathy, trachea midline, supple Mouth: no lip lesion, mucus membranes moist Cardiovascular: S1S2 reg, no murmur, positive posterior tibial pulse bilateral, 1+ LLE edema noted, capillary refill less than 2 seconds Lungs: CTA bilateral, no rhonchi, no rales , no accessory muscle use Abdominal: soft, nontender to palpation, no guarding, no appreciable organomegaly, normal bowel sounds Ext: no gross muscle atrophy, muscle strength 5 out of 5 in all 4 extremities grossly, no contractures, Neuro: CN II-XI grossly intact, light touch intact all 4 extremities, finger to nose within normal limits, Psych: Alert, oriented, anger noted Assessment/plan Pancytopenia with purpura in patient with history of Hepatitis C -Hematology consult, consult added for GI -Patient may need Bone marrow biopsy- -Bone scan ordered by oncology. History of hepatitis C. Consult with GI appreciated, started patient on Aldactone DVT prophylaxis -Hold off on IPCDs in setting of significant LE purpura CODE STATUS: Full Code Discussed with: Patient Anticipated discharge date: in am Anticipated discharge place: Home Impression and plan of care have been directed as dictated by the signing physician. Atiya Goldsmith nurse practitioner acting as scribe for signing physician. Objective - Vital Signs Vital signs: Vital Signs Temp 98.2 F 11/24/21 13:30 Pulse 80 11/24/21 13:30 Resp 18 11/24/21 13:30 BP 162/95 11/24/21 13:30 Pulse Ox 98 11/24/21 13:30 Intake & Output 11/23/21 11/24/21 11/24/21 18:59 06:59 18:59 Other: # Voids 6 1 - Labs CBC & Chem 7: 11/24/21 05:36 11/24/21 05:56 Labs: Abnormal Lab Results - Last 24 Hours (Table) 11/22/21 11/23/21 11/24/21 Range/Units 11:17 08:11 05:36 WBC 1.4 L* (3.8-10.6) k/uL Hgb 12.0 L (13.0-17.5) gm/dL Hct 37.8 L (39.0-53.0) % Plt Count 76 L D (150-450) k/uL Sodium (137-145) mmol/L Calcium (8.4-10.2) mg/dL Total Protein (6.3-8.2) g/dL Albumin (3.5-5.0) g/dL Albumin (PEP) 3.01 L (3.80-4.90) g/dL Zmmos-8-Nkoxlgmbc 0.45 H (0.10-0.40) g/dL Beta Globulins 0.58 L (0.60-1.30) g/dL Gamma Globulins 0.67 L (0.70-1.50) g/dL Rheumatoid Factor 257 H (0-15) IU/mL Free [place] LC, Quant 40.52 H (0.33-1.94) mg/dL 11/24/21 Range/Units 05:56 WBC (3.8-10.6) k/uL Hgb (13.0-17.5) gm/dL Hct (39.0-53.0) % Plt Count (150-450) k/uL Sodium 131 L (137-145) mmol/L Calcium 8.1 L (8.4-10.2) mg/dL Total Protein 5.4 L (6.3-8.2) g/dL Albumin 2.9 L (3.5-5.0) g/dL Albumin (PEP) (3.80-4.90) g/dL Hyyos-1-Ahlgdkrfp (0.10-0.40) g/dL Beta Globulins (0.60-1.30) g/dL Gamma Globulins (0.70-1.50) g/dL Rheumatoid Factor (0-15) IU/mL [place] LC, Quant (0.33-1.94) mg/dL Microbiology - Last 24 Hours (Table) 11/22/21 11:17 Blood Culture - Preliminary Blood No Growth after 48 hours
--- NOTE | 2021-11-24 16:07 | P.PN ---
Subjective Progress Note Date: 11/24/21 Principal diagnosis: Lower extremity swelling, hepatitis Patient is seen as a follow-up. He has a history of hepatitis C which was treated with Harvoni, which he believes his last treatment was in February or March 2021. He presented to the hospital with complaints of left lower extremity swelling with discoloration to his leg. Mom he does have a history of cirrhosis from underlying liver disease related to his hepatitis C. He is followed with Dr. Mcelroy in the office. He is scheduled next month. He is denying any abdominal pain nausea or vomiting. He's been pancytopenic, hematology is following closely. He did undergo a CT of the chest, abdomen and pelvis which reports moderately enlarged spleen measuring 23 cm. Old granulomatous disease, nonspecific mediastinal and bronchial lymph noes. Pulmonary emphysema. Today he is without any complaints. He denies abdominal pain, nausea or vomiting. Hematology continues to follow closely, planning on bone scan. Objective - Vital Signs Vital signs: Vital Signs Temp 98.2 F 11/24/21 13:30 Pulse 80 11/24/21 14:00 Resp 18 11/24/21 14:00 BP 162/95 11/24/21 13:30 Pulse Ox 98 11/24/21 13:30 Intake & Output 11/23/21 11/24/21 11/24/21 18:59 06:59 18:59 Other: # Voids 6 1 3 - Exam General appearance: The patient is alert, oriented, appears in no acute distress. HET: Head is normocephalic and atraumatic. Conjunctiva pink. Sclera anicteric. Neck: Supple without lymphadenopathy. Abdomen: Soft, nontender, nondistended with bowel sounds. No guarding or rigidity. Extremities: Normal skin color and turgor. Left lower extremity edema with purpura Skin: No rashes, no jaundice Neurological: No focal deficits. Alert and oriented x 3. - Labs CBC & Chem 7: 11/24/21 05:36 11/24/21 05:56 Labs: Abnormal Lab Results - Last 24 Hours (Table) 11/22/21 11/23/21 11/24/21 Range/Units 11:17 08:11 05:36 WBC 1.4 L* (3.8-10.6) k/uL Hgb 12.0 L (13.0-17.5) gm/dL Hct 37.8 L (39.0-53.0) % Plt Count 76 L D (150-450) k/uL Sodium (137-145) mmol/L Calcium (8.4-10.2) mg/dL Total Protein (6.3-8.2) g/dL Albumin (3.5-5.0) g/dL Rheumatoid Factor 257 H (0-15) IU/mL Free [place] LC, Quant 40.52 H (0.33-1.94) mg/dL 11/24/21 Range/Units 05:56 WBC (3.8-10.6) k/uL Hgb (13.0-17.5) gm/dL Hct (39.0-53.0) % Plt Count (150-450) k/uL Sodium 131 L (137-145) mmol/L Calcium 8.1 L (8.4-10.2) mg/dL Total Protein 5.4 L (6.3-8.2) g/dL Albumin 2.9 L (3.5-5.0) g/dL Rheumatoid Factor (0-15) IU/mL Free [place] LC, Quant (0.33-1.94) mg/dL Microbiology - Last 24 Hours (Table) 11/22/21 11:17 Blood Culture - Preliminary Blood No Growth after 48 hours Assessment and Plan (1) History of hepatitis C Narrative/Plan: A 66-year-old male who states he was diagnosed and treated for hepatitis C approximately one year ago presented to the emergency department yesterday evening with complaints of lower extremity swelling with discoloration to the left lower extremity. He was noted to have pancytopenia on admission. Patient states he has been treated about one year ago for his hepatitis C and follows with Dr. Turner's office. He is unsure of his treatment however likely Jeannette. Gastroenterology was consulted as patient had questions if his treatment was successful. It does look like he had some outpatient blood work done September 2021 that showed a negative hepatitis C RNA. He is denying any abdominal pain, nausea, vomiting, or abdominal distention. States he's had lower extremity swelling for at least last 1 month's duration with some discoloration to the left lower extremity. He denies any previous history of thrombocytopenia, denies any outpatient follow-up with hematology. He denies any signs or symptoms of bleeding. No GI blood loss reported. Today's labs WBC 1.4 hemoglobin 11.6 hematocrit 35, platelet count 44,000 ESR 20 CRP pending, total bilirubin 1.1 AST 21 and T7 alk phos 69. He had previous AFP tumor marker which was negative less than 1.82 Current Visit: No Status: Chronic Priority: Low Code(s): Z86.19 - PERSONAL HISTORY OF OTHER INFECTIOUS AND PARASITIC DISEASES SNOMED Code(s): 27966250513599 (2) Purpura Current Visit: Yes Status: Acute Code(s): D69.2 - OTHER NONTHROMBOCYTOPENIC PURPURA SNOMED Code(s): 672483651 (3) Pancytopenia Narrative/Plan: Hematology following patient closely for pancytopenia and splenomegaly. Current Visit: Yes Status: Acute Priority: High Code(s): D61.818 - OTHER PANCYTOPENIA SNOMED Code(s): 670443201 (4) Splenomegaly Narrative/Plan: Splenomegaly secondary to underlying cirrhosis of the liver. Current Visit: Yes Status: Acute Code(s): R16.1 - SPLENOMEGALY, NOT ELSEWHERE CLASSIFIED SNOMED Code(s): 47707560 Plan: 1. Continue symptomatic and supportive care 2. Continue with recommendations and workup from hematology for pancytopenia and splenomegaly 3. Most recent hepatitis C RNA nonreactive 4. Continue outpatient follow-up as scheduled with gastroenterology Thank you for this consultation, we will sign off at this time Dr. Freya Mcelroy I agree with the dictator's note, documented as a scribe by Aarti Quintanilla.
[2021-11-25] MEDS ORDERED: FUROSEMIDE 10 MG/ML 4 ML VIAL IV STA (08:13)
[2021-11-25 08:40] VITALS: BP 138/81; PULSE 80; RESP 16; TEMP 97.8
[2021-11-25 09:11] LABS: HCT 33.8 % (39.6-50.0); HGB 10.8 g/dL (13.0-17.0); MCV 81.3 fL (80.0-97.0); Mean Platelet Volume 10.3 fL (9.5-12.2); NRBC Per 100 WBC 0 /100 WBCS (0.0-0.0); Platelet Count 181 X 10*3/uL (140-440); RBC 4.16 X 10*6/uL (4.40-5.60); RDW 14.2 % (11.5-14.5); WBC 1.71 X 10*3/uL (4.50-10.00)
[2021-11-25 09:24] LABS: African American GFR (CKD) 104.2 (60.0-200.0); Albumin 2.9 g/dL (3.8-4.9); Albumin/Globulin Ratio 1.53 (1.60-3.17); Anion Gap 8.8 mmol/L (10.00-18.00); BUN/Creat Ratio 10.78 Ratio (12.00-20.00); Blood Urea Nitrogen 9.7 mg/dL (9.0-27.0); Carbon Dioxide 23.2 mmol/L (20.0-27.5); Globulin 1.9 g/dL (1.6-3.3); Non-African American GFR(CKD) 89.9 (60.0-200.0); Potassium 4.3 mmol/L (3.5-5.5); Total Bilirubin 0.8 mg/dL (0.30-1.20); Total Protein 4.8 g/dL (6.2-8.2)
[2021-11-25] MEDS: NICOTINE 14MG/24HR PATCH TRANSDERM SCH (09:43)
[2021-11-25] MEDS: SPIRONOLACTONE 25 MG TAB PO SCH (09:44)
[2021-11-25] MEDS: FOLIC ACID 1 MG TAB PO SCH (09:44)
[2021-11-25] MEDS: lisinopriL 20 MG TAB PO SCH (09:44)
[2021-11-25] MEDS: FAMOTIDINE 20 MG TAB PO SCH (09:44)
[2021-11-25] MEDS: BACLOFEN 10 MG TAB PO SCH (09:44)
[2021-11-25 11:40] LABS: Neutrophils # (M) 0.58 X 10*3/uL (2.00-8.90)
--- NOTE | 2021-11-25 15:06 | P.PN ---
Subjective Progress Note Date: 11/25/21 Spoke to son and primary team, patient would like to have bone scan outpatient and bone marrow biopsy. Objective - Vital Signs Vital signs: Vital Signs Temp 97.8 F 11/25/21 07:00 Pulse 80 11/25/21 07:00 Resp 16 11/25/21 07:00 BP 138/81 11/25/21 07:00 Pulse Ox 96 11/25/21 07:00 Intake & Output 11/24/21 11/25/21 11/25/21 18:59 06:59 18:59 Intake Total 240 Balance 240 Intake: Oral 240 Other: # Voids 3 1 - Exam - Constitutional General appearance: Present: average body habitus, cooperative, no acute dist ress - EENT Eyes: Present: anicteric sclerae, EOMI ENT: Present: hearing grossly normal - Respiratory Respiratory: bilateral: CTA - Cardiovascular Rhythm: regular Heart sounds: normal: S1, S2 Abnormal Heart Sounds: Absent: systolic murmur, diastolic murmur, rub, S3 Gallop, S4 Gallop, click, other - Peripheral edema leg Peripheral Edema: right: 1+, left: 2+ - Gastrointestinal General gastrointestinal: Present: normal bowel sounds, soft, splenomegaly - Integumentary Integumentary Comment(s): bilateral lower extremity purpura - Neurologic Neurologic: Present: CNII-XII intact - Labs CBC & Chem 7: 11/25/21 05:07 11/25/21 05:07 Labs: Abnormal Lab Results - Last 24 Hours (Table) 11/25/21 11/25/21 Range/Units 05:07 05:07 WBC 1.71 L (4.50-10.00) X 10*3/uL RBC 4.16 L (4.40-5.60) X 10*6/uL Hgb 10.8 L (13.0-17.0) g/dL Hct 33.8 L (39.6-50.0) % MCH 26.0 L (27.0-32.0) pg Neutrophils # (Manual) 0.58 L (2.00-8.90) X 10*3/uL Sodium 133 L (135-145) mmol/L Anion Gap 8.80 L (10.00-18.00) mmol/L BUN/Creatinine Ratio 10.78 L (12.00-20.00) Ratio Calcium 8.0 L (8.7-10.3) mg/dL ALT 7 L (10-49) U/L Total Protein 4.8 L (6.2-8.2) g/dL Albumin 2.9 L (3.8-4.9) g/dL Albumin/Globulin Ratio 1.53 L (1.60-3.17) g/dL Microbiology - Last 24 Hours (Table) 11/22/21 11:17 Blood Culture - Preliminary Blood No Growth after 72 hours Assessment and Plan (1) History of hepatitis C Narrative/Plan: - Treated with Harvoni in February 2021 - Continues with Chronic liver disease per GI - Hepatitis is cleared - Discussed with GI Status: Chronic Priority: Low Code(s): Z86.19 - PERSONAL HISTORY OF OTHER INFECTIOUS AND PARASITIC DISEASES SNOMED Code(s): 58731782848206 (2) Lower extremity edema Narrative/Plan: LLE Edema and bile Purpura No obvious cause for LLE edema, pain in lower abdomen Status: Acute Code(s): R60.0 - LOCALIZED EDEMA SNOMED Code(s): 213029589 (3) Purpura Narrative/Plan: DIC work-up Anca Labs ordered Suspected Vasculitis versus Myeloproliferative disorder Status: Acute Code(s): D69.2 - OTHER NONTHROMBOCYTOPENIC PURPURA SNOMED Code(s): 567661004 (4) Thrombocytopenia Narrative/Plan: Likely from Liver disease cirrhosis, 0 No NSAIDS or ASA at this time, discussed with patient Patient advised to refrain from ETOH Status: Acute Code(s): D69.6 - THROMBOCYTOPENIA, UNSPECIFIED SNOMED Code(s): 214366076 (5) Neutropenia Narrative/Plan: Possibly related to underlying liver disease, however with extreme decrease other etiologies need to be considered - Infectious and malignancy work-up - If infection found can support with growth factor Status: Acute Priority: High Code(s): D70.9 - NEUTROPENIA, UNSPECIFIED SNOMED Code(s): 867181687 Plan: No evidence of Heparin use in recent or this admission Continue to Hold AC therapy and NSAIDS Bicytopenia work-up ordered Likely secondary to hep c and recent treatment and should recover Social work to assist in checking insurance and setting up ride for BM Biopsy next week Check Bone scan and ok to be discharged from oncology standpoint Patient is very unsteady on feet, feel home with PT/OT would be in best safety needs Discharging home with PT/OT Follow-up Dr. Ambriz made for two weeks, included in discharge.
== END 2021-11-25 13:14 | disposition home or self-care (01) ==
LOC: EC 16:57 → 6NMEDSUR 21:54
PROVIDERS: ADMIT Internal Medicine Geriatric Medicine; ATTEND Internal Medicine Geriatric Medicine
DX: D61.818 Other pancytopenia (principal); S80.10XA Contusion of unspecified lower leg, initial encounter; Z91.81 History of falling; D69.2 Other nonthrombocytopenic purpura; Z86.19 Personal history of other infectious and parasitic diseases; R16.1 Splenomegaly, not elsewhere classified; I10 Essential (primary) hypertension; Z90.49 Acquired absence of other specified parts of digestive tract; F17.200 Nicotine dependence, unspecified, uncomplicated; Z82.49 Family history of ischemic heart disease and other diseases of the circulatory system; Z80.9 Family history of malignant neoplasm, unspecified; D72.819 Decreased white blood cell count, unspecified; D69.6 Thrombocytopenia, unspecified; M77.30 Calcaneal spur, unspecified foot; J43.9 Emphysema, unspecified; Z79.899 Other long term (current) drug therapy
CPT/HCPCS: 96374; 99284; 36415; 86255; 83921; 86160 ×2; 85379; 84425; 87521; 87522; 80053 ×3; 80048; 85652; 82607; 82728; 82746; 83540; 83550; 85025 ×3; 85027; 85384; 85610 ×2; 85730 ×2; 86140; 86431; 81003; 87040; 82784 ×3; 84165; 86038; 86334; 83883; 73630; 93971; 71260; 74177; G0378 ×5; S4990 ×3; J1940; Q9967

== ENCOUNTER 2021-12-03 06:20 | Day surgery (SDC) | payer MEDICARE, OTHER ==
[2021-12-01 11:42] VITALS: BMI 24.2
[~2021-12-03 06:20] MED LIST: LACTATED RINGERS 1,000 ML IV SCH; LIDOCAINE 1% (10MG/ML) FOR IV START INTRADERMA PRN
[2021-12-03 06:59] VITALS: RESP 16; TEMP 97.6
[2021-12-03] MEDS ORDERED: LIDOCAINE 1% INJ 10MG/ML (20 ML MDV) ONE (07:05)
[2021-12-03] MEDS ORDERED: fentaNYL (PF) 50 MCG/ML 2 ML AMP ONE (07:05)
[2021-12-03] MEDS ORDERED: MIDAZOLAM 2 MG/2 ML VIAL ONE (07:05)
[2021-12-03] MEDS ORDERED: PROPOFOL 10 MG/ML 20 ML VIAL IV ONE (07:05)
[2021-12-03 08:03] VITALS: BP 110/85; PULSE 73
[2021-12-03 08:09] LABS: HCT 40.6 % (39.0-53.0); HGB 13.5 gm/dL (13.0-17.5); MCH 26.7 pg (25.0-35.0); MCHC 33.3 g/dL (31.0-37.0); Mean Platelet Volume 8.1; RBC 5.07 m/uL (4.30-5.90); RDW 14.2 % (11.5-15.5); Reticulocyte % 2.7 % (0.5-2.0)
[2021-12-03 08:42] LABS: Platelet Count 59 k/uL (150-450)
[2021-12-03 08:45] LABS: Basophils # (M) 0.02 k/uL (0-0.2); Lymphocytes # (M) 0.94 k/uL (1.0-4.8); Monocytes # (M) 0.12 k/uL (0-1.0); Neutrophils # (M) 0.82 k/uL (1.3-7.7); Neutrophils % (M) 41 %; Nucleated Red Blood Cells 0 /100 WBC (0-0); Total Cells Counted 100
--- NOTE | 2021-12-03 09:50 | PCN ---
PROCEDURE NOTE PREOPERATIVE DIAGNOSIS: Leukopenia, thrombocytopenia. POSTOPERATIVE DIAGNOSIS: Leukopenia, thrombocytopenia. PROCEDURE: Bone marrow aspirate and biopsy. SITE: Right iliac crest. ANESTHESIA: Local with IV systemic sedation. DETAILS: Utilizing sterile technique, the skin overlying the right iliac crest was prepared with Betadine and alcohol. After adequate sterile draping and local anesthesia with 1% lidocaine and systemic sedation, a size 11 4-inch Jamshidi needle was utilized to access the periosteum with ease. A total of 15 mL of aspirate and 2 cm bone core biopsies were obtained. The patient tolerated the procedure very well. There was no immediate procedure-related complication. Total blood loss less than 1 mL. Results pending. MMODL / IJN: [id number] /
== END 2021-12-03 08:05 | disposition home or self-care (01) ==
LOC: OR 06:20
PROVIDERS: ATTEND Internal Medicine Hematology & Oncology
DX: D72.819 Decreased white blood cell count, unspecified (principal); D69.49 Other primary thrombocytopenia; I10 Essential (primary) hypertension; F17.210 Nicotine dependence, cigarettes, uncomplicated; K74.60 Unspecified cirrhosis of liver; Z86.19 Personal history of other infectious and parasitic diseases
CPT/HCPCS: 38222; 85025; 85045; J2250; J2001; J3010; J2704